=== PATIENT | female | born 1935 | race Caucasian/White ===

== ENCOUNTER 2016-08-30 14:54 | Observation (INO) | payer MEDICARE, BC ==
[2016-08-30] MEDS ORDERED: ASPIRIN 81 MG CHEW PO STA (15:40)
[2016-08-30] MEDS ORDERED: NITROGLYCERIN OINT 1 INCH/GM PACKET TOPICAL STA (15:40)
--- NOTE | 2016-08-30 15:47 | ED ---
General Adult HPI - General Chief complaint: Chest Pain Stated complaint: Chest Pain/Sob Source: patient, RN notes reviewed Mode of arrival: wheelchair Limitations: no limitations - History of Present Illness Initial comments: This is an 80-year-old female with past medical history significant for high blood pressure and high cholesterol. Patient also has a strong family history of cardiac disease. Patient started having chest pain in the middle of the night and she states it's a pressure sensation in the left chest that radiates to her back. Patient states she's also noted she is somewhat short of breath. Patient denies any diaphoresis patient denies any nausea. Patient denies any abdominal pain. Patient denies any recent fever chills or cough. Patient denies any lightheadedness or dizziness. Patient denies any headache patient denies numbness weakness. Patient denies any vomiting or diarrhea. Patient denies reproducible pain on palpation. Patient denies any calf pain or swelling. Patient denies any recent trips or travel. - Related Data Home Medications Medication Instructions Recorded Confirmed Albuterol Inhaler [Ventolin Hfa 2 puff INHALATION RT-DAILY PRN 03/14/15 08/30/16 Inhaler] Atenolol [Tenormin] 50 mg PO HS 03/14/15 08/30/16 Simvastatin [Zocor] 80 mg PO HS 03/14/15 08/30/16 clonazePAM [KlonoPIN] 0.5 mg PO DAILY PRN 03/14/15 08/30/16 Aspirin [Adult Low Dose Aspirin EC] 81 mg PO DAILY 08/30/16 08/30/16 Losartan/Hydrochlorothiazide 1 tab PO DAILY 08/30/16 08/30/16 [Losartan-Hctz 50-12.5 mg Tab] Multivitamins, Thera [Multivitamin 1 tab PO DAILY 08/30/16 08/30/16 (formulary)] Omeprazole [PriLOSEC] 20 mg PO DAILY 08/30/16 08/30/16 Allergies Allergy/AdvReac Type Severity Reaction Status Date / Time codeine Allergy Unknown Verified 08/30/16 19:26 Review of Systems ROS Statement: Those systems with pertinent positive or pertinent negative responses have been documented in the HPI. ROS Other: All systems not noted in ROS Statement are negative. Past Medical History Past Medical History: Coronary Artery Disease (CAD), Cancer, Chest Pain / Angina , Hypertension History of Any Multi-Drug Resistant Organisms: None Reported Past Surgical History: No Surgical Hx Reported Additional Past Surgical History / Comment(s): brain sx, nasal sx Past Psychological History: No Psychological Hx Reported Smoking Status: Former smoker Past Alcohol Use History: None Reported Past Drug Use History: None Reported General Exam - General Exam Comments Initial Comments: GENERAL: Patient is well-developed and well-nourished. Patient is nontoxic and well- hydrated and is in no acute distress. ENT: Neck is soft and supple. No significant lymphadenopathy is noted. Oropharynx is clear. Moist mucous membranes. Neck has full range of motion without eliciting any pain. EYES: The sclera were anicteric and conjunctiva were pink and moist. Extraocular movements were intact and pupils were equal round and reactive to light. Eyelids were unremarkable. PULMONARY: Unlabored respirations. Good breath sounds bilaterally. No audible rales rhonchi or wheezing was noted. CARDIOVASCULAR: There is a regular rate and rhythm without any murmurs gallops or rubs. ABDOMEN: Soft and nontender with normal bowel sounds. SKIN: Skin is clear with no lesions or rashes and otherwise unremarkable. NEUROLOGIC: Patient is alert and oriented x3. Cranial nerves II through XII are grossly intact. Motor and sensory are also intact. Normal speech, volume and content. Symmetrical smile. MUSCULOSKELETAL: Normal extremities with adequate strength and full range of motion. LYMPHATICS: No significant lymphadenopathy is noted PSYCHIATRIC: Normal psychiatric evaluation Limitations: no limitations Course Vital Signs 08/30/16 08/30/16 08/30/16 14:58 16:09 17:07 Temperature 97.2 F L 98.1 F Pulse Rate 61 63 57 L Respiratory 16 16 17 Rate Blood Pressure 139/62 140/63 159/79 O2 Sat by Pulse 95 98 94 L Oximetry Medical Decision Making - Medical Decision Making EKG shows normal sinus rhythm at 63 bpm DE interval is 180 Darius is 92 QT interval 406 QTC is 415. Patient's EKG shows no ST segment elevation or depression or T-wave abdomen is noted Chest x-ray shows no acute abnormality. I spoke with Dr. Michelle Diallo agreed to admit the patient admitted the patient started the patient on heparin and I consult to cardiology. I continue the heparin and aspirin and Nitropaste on the floor. - Lab Data Result diagrams: 08/30/16 16:05 08/30/16 16:05 Lab Results 08/30/16 08/30/16 08/30/16 Range/Units 16:05 16:05 16:05 WBC 7.4 (3.8-10.6) k/uL RBC 4.44 (3.80-5.40) m/uL Hgb 13.8 (11.4-16.0) gm/dL Hct 38.9 (34.0-46.0) % MCV 87.7 (80.0-100.0) fL MCH 31.1 (25.0-35.0) pg MCHC 35.5 (31.0-37.0) g/dL RDW 12.7 (11.5-15.5) % Plt Count 260 (150-450) k/uL Neutrophils % 60 % Lymphocytes % 23 % Monocytes % 9 % Eosinophils % 2 % Basophils % 1 % Neutrophils # 4.4 (1.3-7.7) k/uL Lymphocytes # 1.7 (1.0-4.8) k/uL Monocytes # 0.7 (0-1.0) k/uL Eosinophils # 0.2 (0-0.7) k/uL Basophils # 0.1 (0-0.2) k/uL PT (9.0-12.0) sec INR (<1.1) APTT (22.0-30.0) sec Sodium 141 (137-145) mmol/L Potassium 3.9 (3.5-5.1) mmol/L Chloride 104 (98-107) mmol/L Carbon Dioxide 27 (22-30) mmol/L Anion Gap 10 mmol/L BUN 32 H (7-17) mg/dL Creatinine 0.89 (0.52-1.04) mg/dL Est GFR (MDRD) Af Amer >60 (>60 ml/min/1.73 sqM) Est GFR (MDRD) Non-Af >60 (>60 ml/min/1.73 sqM) Glucose 126 H (74-99) mg/dL Calcium 9.7 (8.4-10.2) mg/dL Magnesium 1.6 (1.6-2.3) mg/dL Total Bilirubin 1.1 (0.2-1.3) mg/dL AST 24 (14-36) U/L ALT 33 (9-52) U/L Alkaline Phosphatase 63 (38-126) U/L Total Creatine Kinase 31 (30-135) U/L CK-MB (CK-2) 0.2 (0.0-2.4) ng/mL CK-MB (CK-2) Rel Index 0.6 Troponin I <0.012 (0.000-0.034) ng/mL NT-Pro-B Natriuret Pep pg/mL Total Protein 7.1 (6.3-8.2) g/dL Albumin 4.1 (3.5-5.0) g/dL 08/30/16 08/30/16 Range/Units 16:05 16:05 WBC (3.8-10.6) k/uL RBC (3.80-5.40) m/uL Hgb (11.4-16.0) gm/dL Hct (34.0-46.0) % MCV (80.0-100.0) fL MCH (25.0-35.0) pg MCHC (31.0-37.0) g/dL RDW (11.5-15.5) % Plt Count (150-450) k/uL Neutrophils % % Lymphocytes % % Monocytes % % Eosinophils % % Basophils % % Neutrophils # (1.3-7.7) k/uL Lymphocytes # (1.0-4.8) k/uL Monocytes # (0-1.0) k/uL Eosinophils # (0-0.7) k/uL Basophils # (0-0.2) k/uL PT 10.5 (9.0-12.0) sec INR 1.0 (<1.1) APTT 22.9 (22.0-30.0) sec Sodium (137-145) mmol/L Potassium (3.5-5.1) mmol/L Chloride (98-107) mmol/L Carbon Dioxide (22-30) mmol/L Anion Gap mmol/L BUN (7-17) mg/dL Creatinine (0.52-1.04) mg/dL Est GFR (MDRD) Af Amer (>60 ml/min/1.73 sqM) Est GFR (MDRD) Non-Af (>60 ml/min/1.73 sqM) Glucose (74-99) mg/dL Calcium (8.4-10.2) mg/dL Magnesium (1.6-2.3) mg/dL Total Bilirubin (0.2-1.3) mg/dL AST (14-36) U/L ALT (9-52) U/L Alkaline Phosphatase (38-126) U/L Total Creatine Kinase (30-135) U/L CK-MB (CK-2) (0.0-2.4) ng/mL CK-MB (CK-2) Rel Index Troponin I (0.000-0.034) ng/mL NT-Pro-B Natriuret Pep 156 pg/mL Total Protein (6.3-8.2) g/dL Albumin (3.5-5.0) g/dL Critical Care Time Critical Care Time: Yes Total Critical Care Time: 35 Disposition Clinical Impression: Unstable angina Disposition: ADMITTED IP TO THIS HOSP
[2016-08-30 16:21] LABS: Partial Thromboplastin Time 22.9 sec (22.0-30.0); Prothrombin Time 10.5 sec (9.0-12.0)
[2016-08-30 16:22] LABS: ALT 33 U/L (9-52); AST 24 U/L (14-36); Alkaline Phosphatase 63 U/L (38-126); Anion Gap 10 mmol/L; Blood Urea Nitrogen 32 mg/dL (7-17); Calcium 9.7 mg/dL (8.4-10.2); Carbon Dioxide 27 mmol/L (22-30); Chloride 104 mmol/L (98-107); Glucose 126 mg/dL (74-99); Magnesium 1.6 mg/dL (1.6-2.3); Non-African American GFR(MDRD) >60 (>60 ml/min/1.73 sqM); Potassium 3.9 mmol/L (3.5-5.1); Sodium 141 mmol/L (137-145); Total Bilirubin 1.1 mg/dL (0.2-1.3); Total Protein 7.1 g/dL (6.3-8.2)
[2016-08-30 16:34] LABS: Creatine Kinase 31 U/L (30-135)
[2016-08-30 16:37] LABS: Basophils # (A) 0.1 k/uL (0-0.2); Basophils % (A) 1 %; CH 30.1; CHCM 34.5; Eosinophils # (A) 0.2 k/uL (0-0.7); Eosinophils % (A) 2 %; HCT 38.9 % (34.0-46.0); HDW 2.46; HGB 13.8 gm/dL (11.4-16.0); Luc # (Auto) 0.32; Luc % (Auto) 4; Lymphocytes # (A) 1.7 k/uL (1.0-4.8); Lymphocytes % (A) 23 %; MCH 31.1 pg (25.0-35.0); MCHC 35.5 g/dL (31.0-37.0); MCV 87.7 fL (80.0-100.0); Mean Platelet Volume 6.9; Monocytes # (A) 0.7 k/uL (0-1.0); Monocytes % (A) 9 %; Neutrophils # (A) 4.4 k/uL (1.3-7.7); Neutrophils % (A) 60 %; RBC 4.44 m/uL (3.80-5.40); RDW 12.7 % (11.5-15.5); WBC 7.4 k/uL (3.8-10.6); WBC (Perox) 7.44
--- NOTE | 2016-08-30 16:42 | XR ---
EXAMINATION TYPE: XR chest 2V DATE OF EXAM: 08/30/2016 COMPARISON: 03/31/2015 INDICATION: Chest pain TECHNIQUE: Frontal and lateral views of the chest are obtained. FINDINGS: The heart size is normal. The pulmonary vasculature is normal. A right epicardial fat pad may be present. Some increased density appears to be within the right lowe r lobe medially IMPRESSION: 1. No acute pulmonary process.
[2016-08-30 16:45] LABS: Creatine Kinase MB 0.2 ng/mL (0.0-2.4); Troponin I <0.012 ng/mL (0.000-0.034)
[2016-08-30] MEDS ORDERED: HEPARIN SODIUM,PORCINE 5,000 UNIT/ML 1 ML VIAL IV ONE (16:47)
[2016-08-30] MEDS ORDERED: NITROGLYCERIN SL TABS 0.4 MG TAB SUBLINGUAL PRN (16:49)
[2016-08-30] MEDS: HEPARIN SODIUM,PORCINE/D5W PMX 25,000 UNIT in DEXTROSE/WATER 1 500ML.BAG IV SCH (16:58)
[2016-08-30] MEDS ORDERED: clonazePAM 0.5 MG TAB PO PRN (18:25)
[2016-08-30] MEDS ORDERED: ALBUTEROL NEBULIZED 2.5 MG/3 ML INHALATION PRN (18:25)
[2016-08-30] MEDS ORDERED: ACETAMINOPHEN TAB 325 MG TAB PO PRN (19:33)
[2016-08-30] MEDS: ATENOLOL 50 MG TAB PO SCH (20:14)
[2016-08-30] MEDS: ATORVASTATIN 40 MG TAB PO SCH (20:14)
[2016-08-30 22:55] LABS: Creatine Kinase 27 U/L (30-135)
[2016-08-30 23:08] LABS: Creatine Kinase MB <0.2 ng/mL (0.0-2.4); Troponin I <0.012 ng/mL (0.000-0.034)
[2016-08-31] MEDS: NITROGLYCERIN OINT 1 INCH/GM PACKET TOPICAL SCH ×5 (00:27→23:21)
[2016-08-31] MEDS: MELATONIN 5 MG TABLET PO PRN ×2 (00:55→23:25)
[2016-08-31 05:54] LABS: Creatine Kinase MB 0.2 ng/mL (0.0-2.4); Troponin I 0.014 ng/mL (0.000-0.034)
[2016-08-31 06:51] LABS: Cholesterol 201 mg/dL (<200); HDL Cholesterol 40 mg/dL (40-60); Triglycerides 85 mg/dL (<150)
[2016-08-31] MEDS: LOSARTAN-HCTZ 50-12.5 MG 1 EACH TAB PO SCH (08:08)
[2016-08-31] MEDS: PANTOPRAZOLE 40 MG TABLET PO SCH (08:08)
[2016-08-31] MEDS: ASPIRIN 325 MG TAB PO SCH (08:08)
[2016-08-31] MEDS ORDERED: REGADENOSON 0.4 MG/5 ML SYRINGE IV ONE ×2 (08:47→08:58)
[2016-08-31] MEDS ORDERED: AMINOPHYLLINE 500 MG/20 ML VIAL IV PRN (08:47)
--- NOTE | 2016-08-31 08:55 | P.CRDCN ---
History of Present Illness Consult date: 08/31/16 History of present illness: This is a 80-year-old female with history of high blood pressure and remote history of smoking and family history of ischemic heart disease came to the hospital with complaints of midsternal and lower sternal chest tightness as if the balloon is expanding. Apparently patient had a similar episode about 2 weeks ago and was seen in the primary care physician's office. EKG at the time was negative for ischemia. She was advised to go to the hospital. Her next time she had the pain. Last night patient had pain intermittently and finally she came to the emergency room. EKGs did not reveal any acute changes and cardiac enzymes are negative. Patient seemed to be free of pain at this time. Given her multiple risk factors and typical chest pains ,underlying ischemic heart disease cannot be excluded. He patient is advised to consider either cardiac catheterization or a nuclear stress test for definitive diagnosis. I indicated that a cardiac catheterization may be preferable way. Patient always hesitant wants to think about it. I'm going to tentatively scheduled for a nuclear stress test and echocardiogram tomorrow. If she decides to go for cardiac catheterizatio, We can change the plans. Further recommendation will depend upon the clinical course and findings on the tests Review of Systems REVIEW OF SYSTEMS: CONSTITUTIONAL:. Patient is doing well. No complaints of fever or chills EYES: Denies diplopia, blurring of vision EARS, NOSE, MOUTH, THROAT: Denies headaches, denies sore throat. CARDIOVASCULAR: As per chart RESPIRATORY: Denies shortness of breath, denies cough. GASTROINTESTINAL: Denies change in appetite, denies abdominal pain, denies diarrhea GENITOURINARY: Denies hematuria, denies infections. MUSKULOSKELETAL: Denies pain, denies swelling. Denies any cramps or claudication INTEGUMENTARY: Denies rash, denies eczema. NEUROLOGICAL: Denies focal weakness, or visual disturbance. Denies any dizziness or syncope PSYCHIATRIC: Denies anxiety, denies depression. HEMATOLOGIC/LYMPHATIC: Denies any bleeding, denies enlarged lymph nodes. Past Medical History Past Medical History: Coronary Artery Disease (CAD), Cancer, Chest Pain / Angina , Hypertension History of Any Multi-Drug Resistant Organisms: None Reported Past Surgical History: No Surgical Hx Reported Additional Past Surgical History / Comment(s): brain sx, nasal sx Smoking Status: Former smoker Medications and Allergies Home Medications Medication Instructions Recorded Confirmed Type Albuterol Inhaler [Ventolin Hfa 2 puff INHALATION RT-DAILY PRN 03/14/15 History Inhaler] Atenolol [Tenormin] 50 mg PO HS 03/14/15 08/30/16 History Simvastatin [Zocor] 80 mg PO HS 03/14/15 08/30/16 History clonazePAM [KlonoPIN] 0.5 mg PO DAILY PRN 03/14/15 08/30/16 History Aspirin [Adult Low Dose Aspirin EC] 81 mg PO DAILY 08/30/16 08/30/16 History Losartan/Hydrochlorothiazide 1 tab PO DAILY 08/30/16 08/30/16 History [Losartan-Hctz 50-12.5 mg Tab] Multivitamins, Thera [Multivitamin 1 tab PO DAILY 08/30/16 08/30/16 History (formulary)] Omeprazole [PriLOSEC] 20 mg PO DAILY 08/30/16 08/30/16 History Allergies Allergy/AdvReac Type Severity Reaction Status Date / Time codeine Allergy Unknown Verified 08/30/16 19:26 Physical Exam Vitals: Vital Signs Temp Pulse Pulse Resp BP BP Pulse Ox 08/31/16 07:37 98.1 F 55 L 16 134/60 94 L 08/31/16 04:00 16 08/31/16 03:54 97.8 F 56 L 16 125/61 94 L 08/31/16 00:00 16 08/30/16 23:05 98.0 F 58 L 16 103/51 93 L 08/30/16 20:00 16 08/30/16 18:56 98.7 F 62 16 148/70 95 08/30/16 17:07 98.1 F 57 L 17 159/79 94 L 08/30/16 16:09 63 16 140/63 98 08/30/16 14:58 97.2 F L 61 16 139/62 95 Intake and Output 08/30/16 08/31/16 08/31/16 22:59 06:59 14:59 Intake Total 236 Balance 236 Intake: Oral 236 Other: Voiding Method Toilet Toilet Toilet # Voids 1 1 GENERAL EXAM: Patient is alert and oriented and doesn't appear to be in any acute distress HEENT: Normocephalic. Normal reaction of pupils, equal size, normal range of extraocular motion. No erythema or exudates in the throat. NECK: No masses, no nuchal rigidity. CHEST: No chest wall deformity. LUNGS: Equal air entry with no crackles or wheeze. HEART: S1 and S2 normal with no audible mumurs or gallops. Regular rhythm, femorals equal on both sides.. ABDOMEN: No hepatosplenomegaly, normal bowel sounds, no guarding or rigidity. SKIN: No rashes CENTRAL NERVOUS SYSTEM: No focal deficits. EXTREMITIES: No cyanosis, clubbing or edema. Results 08/30/16 16:05 08/30/16 16:05 Cardiac Enzymes 08/30/16 08/30/16 08/30/16 Range/Units 16:05 16:05 21:59 AST 24 (14-36) U/L CK-MB (CK-2) 0.2 <0.2 (0.0-2.4) ng/mL Troponin I <0.012 <0.012 (0.000-0.034) ng/mL 08/31/16 Range/Units 04:41 AST (14-36) U/L CK-MB (CK-2) 0.2 (0.0-2.4) ng/mL Troponin I 0.014 (0.000-0.034) ng/mL Coagulation 08/30/16 08/30/16 08/30/16 Range/Units 16:05 21:59 23:58 PT 10.5 (9.0-12.0) sec APTT 22.9 73.6 H 65.7 H (22.0-30.0) sec 08/31/16 Range/Units 04:41 PT (9.0-12.0) sec APTT 64.7 H (22.0-30.0) sec Lipids 08/31/16 Range/Units 04:41 Triglycerides 85 (<150) mg/dL Cholesterol 201 H (<200) mg/dL HDL Cholesterol 40 (40-60) mg/dL CBC 08/30/16 Range/Units 16:05 WBC 7.4 (3.8-10.6) k/uL RBC 4.44 (3.80-5.40) m/uL Hgb 13.8 (11.4-16.0) gm/dL Hct 38.9 (34.0-46.0) % Plt Count 260 (150-450) k/uL Comprehensive Metabolic Panel 08/30/16 Range/Units 16:05 Sodium 141 (137-145) mmol/L Potassium 3.9 (3.5-5.1) mmol/L Chloride 104 (98-107) mmol/L Carbon Dioxide 27 (22-30) mmol/L BUN 32 H (7-17) mg/dL Creatinine 0.89 (0.52-1.04) mg/dL Glucose 126 H (74-99) mg/dL Calcium 9.7 (8.4-10.2) mg/dL AST 24 (14-36) U/L ALT 33 (9-52) U/L Alkaline Phosphatase 63 (38-126) U/L Total Protein 7.1 (6.3-8.2) g/dL Albumin 4.1 (3.5-5.0) g/dL Current Medications Generic Name Dose Route Start Last Admin Trade Name Freq PRN Reason Stop Dose Admin Acetaminophen 650 mg 08/30/16 19:33 08/30/16 20:14 Tylenol Tab PO 650 mg Q4HR PRN Administration Fever and/ or MILD Pain Albuterol Sulfate 2.5 mg 08/30/16 18:25 Ventolin Nebulized INHALATION RT-DAILY PRN Shortness Of Breath Aminophylline 100 mg 08/31/16 08:47 Aminophylline IV ONCE PRN Patient Response Aspirin 325 mg 08/31/16 09:00 08/31/16 08:08 Aspirin PO 325 mg DAILY NEYDA Administration Atenolol 50 mg 08/30/16 21:00 08/30/16 20:14 Tenormin PO 50 mg HS NEYDA Administration Atorvastatin Calcium 40 mg 08/30/16 21:00 08/30/16 20:14 Lipitor PO 40 mg HS NEYDA Administration Clonazepam 0.5 mg 08/30/16 18:25 Klonopin PO DAILY PRN Anxiety HCTZ/Losartan Potassium 1 each 08/31/16 09:00 08/31/16 08:08 Hyzaar 50-12.5 PO 1 each DAILY NEYDA Administration Heparin Sodium/Dextrose 25,000 500 mls @ 14.69 mls/hr 08/30/16 17:00 16:58 unit/ IV Solution IV 12 units/kg/hr .Q24H NEYDA 14.69 mls/hr Protocol Administration 12 UNITS/KG/HR Melatonin 5 mg 08/31/16 00:32 08/31/16 00:55 Melatonin PO 5 mg HS PRN Administration Insomnia Multivitamins 1 each 08/31/16 12:00 Theragran PO 1200 NEYDA Nitroglycerin 1 inch 08/31/16 00:00 08/31/16 06:12 Nitro-Bid Oint TOPICAL 1 inch Q6HR NEYDA Administration Nitroglycerin 0.4 mg 08/30/16 16:49 Nitrostat SUBLINGUAL Q5M PRN Chest Pain Pantoprazole Sodium 40 mg 08/31/16 09:00 08/31/16 08:08 Protonix PO 40 mg DAILY NEYDA Administration Regadenoson 0.4 mg 08/31/16 08:47 Lexiscan IV 08/31/16 08:48 ONCE ONE Intake and Output 08/30/16 08/31/16 08/31/16 22:59 06:59 14:59 Intake Total 236 Balance 236 Intake: Oral 236 Other: Voiding Method Toilet Toilet Toilet # Voids 1 1 08/30/16 16:05 08/30/16 16:05 EKG Interpretations (text) Sinus rhythm Assessment and Plan (1) Chest pain Status: Acute (2) Unstable angina Status: Acute (3) Hypertension Status: Acute (4) History of smoking Status: Acute Plan: Patient is relatively stable at this time. Underlying ischemic heart disease cannot be excluded. Patient is advised to consider either cardiac catheterization or nuclear stress test though cardiac catheterization may be preferable. Patient is agent at this time, about cardiac catheterization. Patient will have nuclear stress test tomorrow along with echocardiogram. Further recommendation will depend upon the findings on the tests.
[2016-08-31] MEDS ORDERED: NON-FORMULARY DRUG (Aspirin [Adult Low Dose Aspirin Ec] 81 MG) PO SCH (09:00)
[2016-08-31] MEDS ORDERED: ATENOLOL 50 MG TAB PO SCH (09:00)
[2016-08-31] MEDS ORDERED: ALPRAZolam 0.25 MG TAB PO STA (09:06)
[2016-08-31] MEDS ORDERED: ATORVASTATIN 40 MG TAB PO STA (09:29)
[2016-08-31] MEDS ORDERED: NITROGLYCERIN SL TABS 0.4 MG TAB SUBLINGUAL PRN (09:29)
[2016-08-31] MEDS ORDERED: SODIUM CHLORIDE 0.9% 1,000 ML in EMPTY BAG 1 BAG IV ONE (09:29)
[2016-08-31] MEDS ORDERED: ALPRAZolam 0.25 MG TAB PO PRN (09:29)
[2016-08-31] MEDS ORDERED: ALPRAZolam 0.5 MG TAB PO PRN (09:29)
[2016-08-31] MEDS ORDERED: ASPIRIN 325 MG TAB PO STA (09:29)
[2016-08-31] MEDS: MULTIVITAMINS, THERA 1 EACH TAB PO SCH (12:35)
--- NOTE | 2016-08-31 14:51 | P.HPIM ---
History of Present Illness This is a 80-year-old female with history of high blood pressure and remote history of smoking and family history of ischemic heart disease came to the hospital with complaints of midsternal and lower sternal chest tightness as if the balloon is expanding. Apparently patient had a similar episode about 2 weeks ago and was seen in the primary care physician's office. EKG at the time was negative for ischemia. She was advised to go to the hospital. Her next time she had the pain. Last night patient had pain intermittently and finally she came to the emergency room. EKGs did not reveal any acute changes and cardiac enzymes are negative. Patient seemed to be free of pain at this time. Patient's chest pain is non-pruritic in nature, not associated with food lasted for 3 hours, about 5-6 x 10 in severity and he didn't do the back, patient does have back pain. Patient denied any diaphoresis, nausea, lightheadedness. Sublingual nitroglycerin didn't seem to help. Review of Systems REVIEW OF SYSTEMS: CONSTITUTIONAL: No fever, no malaise, no fatigue. HEENT: No recent visual problems or hearing problems. Denied any sore throat. CARDIOVASCULAR: No orthopnea, PND, no palpitations, no syncope. PULMONARY: No shortness of breath, no cough, no hemoptysis. GASTROINTESTINAL: No diarrhea, no nausea, no vomiting, no abdominal pain. Normoactive bowel sounds. NEUROLOGICAL: No headaches, no weakness, no numbness. HEMATOLOGICAL: Denies any bleeding or petechiae. GENITOURINARY: Denies any burning micturition, frequency, or urgency. MUSCULOSKELETAL/RHEUMATOLOGICAL: Denies any joint pain, swelling, or any muscle pain. ENDOCRINE: Denies any polyuria or polydipsia. The rest of the 14-point review of systems is negative. Past Medical History Past Medical History: Coronary Artery Disease (CAD), Cancer, Chest Pain / Angina , Hypertension History of Any Multi-Drug Resistant Organisms: None Reported Past Surgical History: No Surgical Hx Reported Additional Past Surgical History / Comment(s): brain sx, nasal sx Smoking Status: Former smoker Medications and Allergies Home Medications Medication Instructions Recorded Confirmed Type Albuterol Inhaler [Ventolin Hfa 2 puff INHALATION RT-DAILY PRN 03/14/15 History Inhaler] Atenolol [Tenormin] 50 mg PO HS 03/14/15 08/30/16 History Simvastatin [Zocor] 80 mg PO HS 03/14/15 08/30/16 History clonazePAM [KlonoPIN] 0.5 mg PO DAILY PRN 03/14/15 08/30/16 History Aspirin [Adult Low Dose Aspirin EC] 81 mg PO DAILY 08/30/16 08/30/16 History Losartan/Hydrochlorothiazide 1 tab PO DAILY 08/30/16 08/30/16 History [Losartan-Hctz 50-12.5 mg Tab] Multivitamins, Thera [Multivitamin 1 tab PO DAILY 08/30/16 08/30/16 History (formulary)] Omeprazole [PriLOSEC] 20 mg PO DAILY 08/30/16 08/30/16 History Allergies Allergy/AdvReac Type Severity Reaction Status Date / Time codeine Allergy Unknown Verified 08/30/16 19:26 Physical Exam Vitals: Vital Signs Temp Pulse Pulse Resp BP BP Pulse Ox 08/31/16 11:34 98 F 60 16 145/63 95 08/31/16 07:37 98.1 F 55 L 16 134/60 94 L 08/31/16 04:00 16 08/31/16 03:54 97.8 F 56 L 16 125/61 94 L 08/31/16 00:00 16 08/30/16 23:05 98.0 F 58 L 16 103/51 93 L 08/30/16 20:00 16 08/30/16 18:56 98.7 F 62 16 148/70 95 08/30/16 17:07 98.1 F 57 L 17 159/79 94 L 08/30/16 16:09 63 16 140/63 98 08/30/16 14:58 97.2 F L 61 16 139/62 95 Intake and Output 08/30/16 08/31/16 08/31/16 22:59 06:59 14:59 Intake Total 236 Balance 236 Intake: Oral 236 Other: Voiding Method Toilet Toilet Toilet # Voids 1 1 1 PHYSICAL EXAMINATION: GENERAL: The patient is alert and oriented x3, not in any acute distress. Well developed, well nourished. HEENT: Pupils are round and equally reacting to light. EOMI. No scleral icterus. No conjunctival pallor. Normocephalic, atraumatic. No pharyngeal erythema. No thyromegaly. CARDIOVASCULAR: S1 and S2 present. No murmurs, rubs, or gallops. PULMONARY: Chest is clear to auscultation, no wheezing or crackles. ABDOMEN: Soft, nontender, nondistended, normoactive bowel sounds. No palpable organomegaly. MUSCULOSKELETAL: No joint swelling or deformity. EXTREMITIES: No cyanosis, clubbing, or pedal edema. NEUROLOGICAL: Gross neurological examination did not reveal any focal deficits. SKIN: No rashes. Results CBC & Chem 7: 08/30/16 16:05 08/30/16 16:05 Labs: Abnormal Lab Results - Last 24 Hours (Table) 08/30/16 08/30/16 08/30/16 Range/Units 16:05 21:59 21:59 APTT 73.6 H (22.0-30.0) sec BUN 32 H (7-17) mg/dL Glucose 126 H (74-99) mg/dL Total Creatine Kinase 27 L (30-135) U/L Cholesterol (<200) mg/dL LDL Cholesterol, Calc (0-99) mg/dL 08/30/16 08/31/16 08/31/16 Range/Units 23:58 04:41 04:41 APTT 65.7 H (22.0-30.0) sec BUN (7-17) mg/dL Glucose (74-99) mg/dL Total Creatine Kinase 25 L (30-135) U/L Cholesterol 201 H (<200) mg/dL LDL Cholesterol, Calc 144 H (0-99) mg/dL 08/31/16 Range/Units 04:41 APTT 64.7 H (22.0-30.0) sec BUN (7-17) mg/dL Glucose (74-99) mg/dL Total Creatine Kinase (30-135) U/L Cholesterol (<200) mg/dL LDL Cholesterol, Calc (0-99) mg/dL Thrombosis Risk Factor Assmnt - Choose All That Apply Each Risk Factor Represents 3 Points: Age 75 years or older Thrombosis Risk Factor Assessment Total Risk Factor Score: 3 Thrombosis Risk Factor Assessment Level: Moderate Risk Assessment and Plan Plan: #1 chest pain: Rule out a concurrent syndromes, stable angina, cardiology is recommending cardiac catheterization. Patient will undergo cardiac catheterization tomorrow patient mostly has [place] skeletal pain probably coming from the back. #2 hypertension #3 history of smoking.
[2016-08-31] MEDS: ATORVASTATIN 40 MG TAB PO SCH (19:28)
[2016-08-31] MEDS: ATENOLOL 50 MG TAB PO SCH (19:28)
[2016-08-31] MEDS: HEPARIN SODIUM,PORCINE/D5W PMX 25,000 UNIT in DEXTROSE/WATER 1 500ML.BAG IV SCH (23:24)
[2016-09-01] MEDS: NITROGLYCERIN OINT 1 INCH/GM PACKET TOPICAL SCH ×2 (04:28→10:45)
[2016-09-01] MEDS: PANTOPRAZOLE 40 MG TABLET PO SCH (06:03)
[2016-09-01] MEDS: LOSARTAN-HCTZ 50-12.5 MG 1 EACH TAB PO SCH (06:03)
[2016-09-01] MEDS: ASPIRIN 325 MG TAB PO SCH (06:03)
[2016-09-01] MEDS ORDERED: AMINOPHYLLINE 500 MG/20 ML VIAL IV PRN ×2 (07:00)
[2016-09-01 07:15] VITALS: RESP 16
[2016-09-01] MEDS ORDERED: IV FLUID CONTINUATION 1,000 ML IV ONE (08:17)
[2016-09-01] MEDS ORDERED: LIDOCAINE 2% INJ 20 MG/ML SQ ONE (08:32)
[2016-09-01] MEDS ORDERED: diphenhydrAMINE 50 MG/ML 1 ML VIAL IVP ONE (08:32)
[2016-09-01] MEDS ORDERED: fentaNYL (PF) 50 MCG/ML 2 ML AMP IVP ONE (08:33)
[2016-09-01] MEDS ORDERED: MIDAZOLAM 2 MG/2 ML VIAL IVP ONE (08:33)
[2016-09-01] MEDS ORDERED: IOHEXOL 350 MG/ML 100 ML BOTTLE INJ ONE (08:45)
[2016-09-01] MEDS ORDERED: RX INFO: IV CONTRAST WAS GIVEN 1 EACH MISC MISCELLANE PRN (09:02)
[2016-09-01] MEDS ORDERED: SODIUM CHLORIDE 0.9% 1,000 ML IV SCH (09:15)
--- NOTE | 2016-09-01 11:32 | ECHOF ---
Referral Reason:Chest pain and cardiomyopathy MEASUREMENTS -------- HEIGHT: 160.0 cm WEIGHT: 61.2 kg BP: 157/68 RVIDd: 3.2 cm (< 3.3) IVSd: 1.1 cm (0.6 - 1.1) LVIDd: 4.4 cm (3.9 - 5.3) LVPWd: 1.0 cm (0.6 - 1.1) IVSs: 1.3 cm LVIDs: 2.9 cm LVPWs: 1.6 cm LA Diam: 3.1 cm (2.7 - 3.8) LAESV Index (A-L): 29.29 ml/m Ao Diam: 3.5 cm (2.0 - 3.7) AV Cusp: 2.1 cm (1.5 - 2.6) MV EXCURSION: 13.362 mm (> 18.000) MV EF SLOPE: 50 mm/s (70 - 150) EPSS: 0.6 cm MV E Bertram: 0.70 m/s MV DecT: 382 ms MV A Bertram: 0.91 m/s MV E/A Ratio: 0.77 AR PHT: 656 ms RAP: 5.00 mmHg RVSP: 35.68 mmHg FINDINGS -------- Sinus rhythm. This was a technically good study. The left ventricular size is normal. There is borderline concentric left ventricular hypertrophy. Overall left ventricular systolic function is normal with, an EF between 60 - 65 %. The right ventricle is normal in size. LA is midly dilated 29-33ml/m2. The right atrium is normal in size. Aortic valve is trileaflet and is mildly thickened. There is [id number] aortic regurgitation. Mild mitral annular calcification present. Mild mitral regurgitation is present. Mild tricuspid regurgitation present. There is mild pulmonary hypertension. The right ventricular systolic pressure, as measured by Doppler, is 35.68mmHg. Trace/mild (physiologic) pulmonic regurgitation. The aortic root size is normal. Normal inferior vena cava with normal inspiratory collapse consistent with estimated right atrial pressure of 5 mmHg. The pericardium is normal. CONCLUSIONS -------- 1. Sinus rhythm. 2. There is [id number] aortic regurgitation. 3. Mild mitral annular calcification present. 4. Mild mitral regurgitation is present. 5. Mild tricuspid regurgitation present. 6. There is mild pulmonary hypertension. 7. The right ventricular systolic pressure, as measured by Doppler, is 35.68mmHg. 8. Trace/mild (physiologic) pulmonic regurgitation. 9. The aortic root size is normal. 10. Normal inferior vena cava with normal inspiratory collapse consistent with estimated right atrial pressure of 5 mmHg. 11. The pericardium is normal. 12. This was a technically good study. 13. The left ventricular size is normal. 14. There is borderline concentric left ventricular hypertrophy. 15. Overall left ventricular systolic function is normal with, an EF between 60 - 65 %. 16. The right ventricle is normal in size. 17. LA is midly dilated 29-33ml/m2. 18. The right atrium is normal in size. 19. Aortic valve is trileaflet and is mildly thickened. SENIOR BOOKKEEPER: Usha Ortiz RDCS
[2016-09-01 11:40] VITALS: TEMP 97.7
[2016-09-01] MEDS: MULTIVITAMINS, THERA 1 EACH TAB PO SCH (11:49)
[2016-09-01 13:02] VITALS: BP 110/53; PULSE 56
--- NOTE | 2016-09-02 15:16 | P.DS ---
Providers Date of admission: 08/30/16 16:49 Attending physician: Lee Stephenson Consults: 08/30/16 16:49 Consult Physician Urgent Consulting Provider: [facility] Consult Reason/Comments: Unstable angina Do you want consulting provider notified?: Yes Primary care physician: Lee Stephenson Pertinent Studies: Patient developed chest pain which is probably muscular skeletal in nature and patient underwent coronary catheterization which did not show any occlusive atherosclerotic vascular disease. Patient was discharged today. #1 chest pain: Rule out a concurrent syndromes, stable angina, cardiology is recommending cardiac catheterization. Patient will undergo cardiac catheterization tomorrow patient mostly has [place] skeletal pain probably coming from the back. #2 hypertension #3 history of smoking. Patient Condition at Discharge: Good Plan - Discharge Summary New Discharge Prescriptions: Continue clonazePAM [KlonoPIN] 0.5 mg PO DAILY PRN PRN Reason: Anxiety Simvastatin [Zocor] 80 mg PO HS Atenolol [Tenormin] 50 mg PO HS Albuterol Inhaler [Ventolin Hfa Inhaler] 2 puff INHALATION RT-DAILY PRN PRN Reason: Shortness Of Breath Omeprazole [PriLOSEC] 20 mg PO DAILY Multivitamins, Thera [Multivitamin (formulary)] 1 tab PO DAILY Losartan/Hydrochlorothiazide [Losartan-Hctz 50-12.5 mg Tab] 1 tab PO DAILY Aspirin [Adult Low Dose Aspirin EC] 81 mg PO DAILY Discharge Medication List Albuterol Inhaler [Ventolin Hfa Inhaler] 2 puff INHALATION RT-DAILY PRN [History] Atenolol [Tenormin] 50 mg PO HS 03/14/15 [History] Simvastatin [Zocor] 80 mg PO HS 03/14/15 [History] clonazePAM [KlonoPIN] 0.5 mg PO DAILY PRN 03/14/15 [History] Aspirin [Adult Low Dose Aspirin EC] 81 mg PO DAILY 08/30/16 [History] Losartan/Hydrochlorothiazide [Losartan-Hctz 50-12.5 mg Tab] 1 tab PO DAILY 08/30 [History] Multivitamins, Thera [Multivitamin (formulary)] 1 tab PO DAILY 08/30/16 [History ] Omeprazole [PriLOSEC] 20 mg PO DAILY 08/30/16 [History] Follow up Appointment(s)/Referral(s): Lee Stephenson MD [Primary Care Provider] - 1-2 days (please call and make appointment,office is closed) Patient Instructions/Handouts: *[facility] - After Heart Catheterization - Technical Consultant Instructions, Heart Catheterization (DC) Discharge Disposition: HOME SELF-CARE
--- NOTE | 2016-09-05 13:27 | P.PCN ---
Date of Procedure: 09/01/16 Preoperative Diagnosis: Unstable angina Postoperative Diagnosis: Normal coronary arteries Procedure(s) Performed: Left heart catheterization with left ventriculography Implants: Indications for Procedure: Operative Findings: Description of Procedure: HISTORY: This is a 80-year-old female with multiple risk factors, who was admitted to the hospital with complaints of recurrent chest pain suggestive of unstable angina. She is advised to have a cardiac catheterization for definitive diagnosis. CONSENT:I have discussed the risks, benefits and alternative therapies for the above-mentioned procedure and for both sedation/analgesia as well as necessary blood product administration, if indicated, as they pertain to this patient. The patient has indicated understanding and acceptance of the risks and procedures discussed. CONSCIOUS SEDATION: Patient is given IV Versed and fentanyl for sedation. The duration of the sedation was 25 minutes. PROCEDURE: Patient was brought to the lab in a fasting state. Patient was given some IV sedation. The right groin is infiltrated with lidocaine and right femoral artery was entered using Seldinger technique. A 6-Turkmen catheter was left in place and selective coronary arteriography and left ventriculography was performed. Patient tolerated the procedure well. Femoral angiogram was performed and Angio-Seal was applied for hemostasis. No immediate complications were noted and patient was transferred to [facility] in a stable condition HEMODYNAMICS: Aortic pressure is 130/70. Left ankle end-diastolic pressure was 15. There was no gradient across the aortic valve. SELECTIVE CORONARY ARTERIOGRAPHY: LEFT MAIN: the left main coronary artery is of normal length and patent THE LEFT ANTERIOR DESCENDING CORONARY ARTERY: It is a moderate caliber vessel with mild calcification and ectatic changes without any significant obstructive disease. THE LEFT CIRCUMFLEX AND IS CORONARY ARTERY: This is a red caliber vessel giving rise to good-sized OM branch. The circumflex and its branches are free of any occlusive disease. THE RIGHT CORONARY ARTERY: This is a good caliber vessel and dominant giving rise good-sized PDA. The right coronary artery and its branches are free of any significant occlusive disease. LEFT VENTRICULOGRAPHY: This showed a normal-sized cardiac silhouette with good preserved LV function. FINAL IMPRESSION: Minimal coronary artery disease with calcification and ectasia of the left coronary system. Preserved LV function PLAN: maximum medical therapy and risk factor modification PROGNOSIS: good
== END 2016-09-01 15:20 | disposition home or self-care (01) ==
LOC: EC 14:54 → 3OBS 16:49
PROVIDERS: ADMIT Family Medicine; ATTEND Family Medicine
DX: I25.110 Atherosclerotic heart disease of native coronary artery with unstable angina pectoris (principal); E78.00 Pure hypercholesterolemia, unspecified; I10 Essential (primary) hypertension; Z87.891 Personal history of nicotine dependence; Z82.49 Family history of ischemic heart disease and other diseases of the circulatory system; Z79.899 Other long term (current) drug therapy; Z79.82 Long term (current) use of aspirin; Z88.5 Allergy status to narcotic agent
CPT/HCPCS: 99152; 96376 ×2; 96365 ×2; 99291 ×2; 93005 ×2; 96366 ×2; 36415; 93306; 93458; 83880; 80061; 80053; 82550 ×2; 82553 ×2; 83735; 84484 ×2; 85025; 85610; 85730 ×3; 71020; G0378 ×3; C1760; C1894; C1769; J2001; J2250; J1200; J1644 ×3; Q9967; J3010

== ENCOUNTER 2017-06-09 07:58 | Emergency (ER) | payer MEDICARE, BC ==
[2017-06-09] MEDS ORDERED: SODIUM CHLORIDE 0.9% 1,000 ML IV STA ×2 (08:31)
[2017-06-09] MEDS ORDERED: PANTOPRAZOLE 40 MG/10 ML VIAL IVP STA (08:32)
[2017-06-09 08:54] LABS: Basophils % (A) 0 %; Eosinophils # (A) 0.2 k/uL (0-0.7); Eosinophils % (A) 2 %; HGB 13.6 gm/dL (11.4-16.0); Lymphocytes # (A) 1.2 k/uL (1.0-4.8); Lymphocytes % (A) 13 %; MCH 29.1 pg (25.0-35.0); MCHC 33.3 g/dL (31.0-37.0); MCV 87.3 fL (80.0-100.0); Mean Platelet Volume 7.8; Monocytes # (A) 0.4 k/uL (0-1.0); Monocytes % (A) 4 %; Neutrophils # (A) 7.1 k/uL (1.3-7.7); Neutrophils % (A) 80 %; Platelet Count 272 k/uL (150-450); RBC 4.69 m/uL (3.80-5.40); RDW 12.7 % (11.5-15.5); WBC 8.9 k/uL (3.8-10.6)
--- NOTE | 2017-06-09 08:57 | ED ---
Nausea/Vomiting/Diarrhea HPI - General Chief complaint: Nausea/Vomiting/Diarrhea Stated complaint: NVD Time Seen by Provider: 06/09/17 08:02 Source: patient, RN notes reviewed, old records reviewed Mode of arrival: EMS Limitations: no limitations - History of Present Illness Initial comments: This is an 81-year-old female chief complaint of dizziness for the past few weeks. She went to her primary care doctor's yesterday for evaluation for this. They had no significant diagnosis for it. Patient reports that yesterday she went to bed and had a few episodes of diarrhea and vomiting. She states that she had a proximally 4 episodes of severe diarrhea. She states afterwards she still felt dizzy and lightheaded. She reports that when she went to return to bed she seemed to slip out of the bed. She denies any head injury or any pain related to this minor fall. Patient relates that she has no chest pain or shortness of breath. She said she denies any abdominal pain but reports she still feels nauseated due to her vomiting. Patient relates that she 's had no fevers or chills. The diarrhea and vomiting just started yesterday evening.. - Related Data Home Medications Medication Instructions Recorded Confirmed Albuterol Inhaler [Ventolin Hfa 2 puff INHALATION RT-DAILY PRN 03/14/15 06/09/17 Inhaler] Atenolol [Tenormin] 25 mg PO HS 03/14/15 06/09/17 Simvastatin [Zocor] 80 mg PO HS 03/14/15 06/09/17 clonazePAM [KlonoPIN] 0.5 mg PO DAILY@1400 PRN 03/14/15 06/09/17 Aspirin [Adult Low Dose Aspirin EC] 81 mg PO DAILY 08/30/16 06/09/17 Losartan/Hydrochlorothiazide 1 tab PO DAILY 08/30/16 06/09/17 [Losartan-Hctz 50-12.5 mg Tab] Multivitamins, Thera [Multivitamin 1 tab PO DAILY 08/30/16 06/09/17 (formulary)] Omeprazole [PriLOSEC] 20 mg PO DAILY 08/30/16 06/09/17 Escitalopram [Lexapro] 5 mg PO DAILY 06/09/17 06/09/17 clonazePAM [KlonoPIN] 0.25 mg PO BID@0800,2100 06/09/17 06/09/17 Previous Rx's Medication Instructions Recorded Ondansetron Odt [Zofran Odt] 4 mg PO Q8HR PRN #12 tab 06/09/17 Allergies Allergy/AdvReac Type Severity Reaction Status Date / Time codeine Allergy Unknown Verified 06/09/17 09:14 Review of Systems ROS Statement: Those systems with pertinent positive or pertinent negative responses have been documented in the HPI. ROS Other: All systems not noted in ROS Statement are negative. Past Medical History Past Medical History: Coronary Artery Disease (CAD), Cancer, Chest Pain / Angina , Hypertension History of Any Multi-Drug Resistant Organisms: None Reported Past Surgical History: No Surgical Hx Reported Additional Past Surgical History / Comment(s): brain sx, nasal sx Past Psychological History: Anxiety Smoking Status: Former smoker Past Alcohol Use History: None Reported Past Drug Use History: None Reported General Exam Limitations: no limitations Course Vital Signs 06/09/17 06/09/17 08:05 10:02 Temperature 98.9 F Pulse Rate 67 75 Respiratory 16 18 Rate Blood Pressure 162/70 134/62 O2 Sat by Pulse 93 L 96 Oximetry - Reevaluation(s) Reevaluation #1: 06/09/17 11:56 Patient reports he feels better. Patient states she would like to be discharged home at this time. Medical Decision Making - Medical Decision Making 81-year-old female presents with nausea vomiting diarrhea for approximately one day. Given 2 L of IV fluids labwork obtained. All lab work was reviewed and normal. Distal abdominal tenderness. She feels better after receiving Zofran. No vomiting or diarrhea while in the emergency department. She states she would like to go home. Discussed the case infection treated to slightly dehydrated. Discussed clear liquid diet. We'll discharge the patient Zofran. All questions answered and return parameters were discussed. - Lab Data Result diagrams: 06/09/17 08:00 06/09/17 08:00 Lab Results 06/09/17 06/09/17 06/09/17 Range/Units 08:00 08:00 08:00 WBC 8.9 (3.8-10.6) k/uL RBC 4.69 (3.80-5.40) m/uL Hgb 13.6 (11.4-16.0) gm/dL Hct 41.0 (34.0-46.0) % MCV 87.3 (80.0-100.0) fL MCH 29.1 (25.0-35.0) pg MCHC 33.3 (31.0-37.0) g/dL RDW 12.7 (11.5-15.5) % Plt Count 272 (150-450) k/uL Neutrophils % 80 % Lymphocytes % 13 % Monocytes % 4 % Eosinophils % 2 % Basophils % 0 % Neutrophils # 7.1 (1.3-7.7) k/uL Lymphocytes # 1.2 (1.0-4.8) k/uL Monocytes # 0.4 (0-1.0) k/uL Eosinophils # 0.2 (0-0.7) k/uL Basophils # 0.0 (0-0.2) k/uL PT (9.0-12.0) sec INR (<1.2) APTT (22.0-30.0) sec Sodium 143 (137-145) mmol/L Potassium 4.4 (3.5-5.1) mmol/L Chloride 107 (98-107) mmol/L Carbon Dioxide 22 (22-30) mmol/L Anion Gap 14 mmol/L BUN 30 H (7-17) mg/dL Creatinine 0.77 (0.52-1.04) mg/dL Est GFR (CKD-EPI)AfAm 83 (>60 ml/min/1.73 sqM) Est GFR (CKD-EPI)NonAf 72 (>60 ml/min/1.73 sqM) Glucose 121 H (74-99) mg/dL Plasma Lactic Acid Sudhakar 1.5 (0.7-2.0) mmol/L Calcium 9.2 (8.4-10.2) mg/dL Magnesium 1.5 L (1.6-2.3) mg/dL Total Bilirubin 1.2 (0.2-1.3) mg/dL AST 32 (14-36) U/L ALT 28 (9-52) U/L Alkaline Phosphatase 60 (38-126) U/L Troponin I (0.000-0.034) ng/mL NT-Pro-B Natriuret Pep pg/mL Total Protein 6.7 (6.3-8.2) g/dL Albumin 3.8 (3.5-5.0) g/dL Amylase 113 H (30-110) U/L Lipase 319 H (23-300) U/L Urine Color Urine Appearance (Clear) Urine pH (5.0-8.0) Ur Specific State Road (1.001-1.035) Urine Protein (Negative) Urine Glucose (UA) (Negative) Urine Ketones (Negative) Urine Blood (Negative) Urine Nitrite (Negative) Urine Bilirubin (Negative) Urine Urobilinogen (<2.0) mg/dL Ur Leukocyte Esterase (Negative) 06/09/17 06/09/17 06/09/17 Range/Units 08:00 08:00 08:00 WBC (3.8-10.6) k/uL RBC (3.80-5.40) m/uL Hgb (11.4-16.0) gm/dL Hct (34.0-46.0) % MCV (80.0-100.0) fL MCH (25.0-35.0) pg MCHC (31.0-37.0) g/dL RDW (11.5-15.5) % Plt Count (150-450) k/uL Neutrophils % % Lymphocytes % % Monocytes % % Eosinophils % % Basophils % % Neutrophils # (1.3-7.7) k/uL Lymphocytes # (1.0-4.8) k/uL Monocytes # (0-1.0) k/uL Eosinophils # (0-0.7) k/uL Basophils # (0-0.2) k/uL PT 10.0 (9.0-12.0) sec INR 1.0 (<1.2) APTT 20.3 L (22.0-30.0) sec Sodium (137-145) mmol/L Potassium (3.5-5.1) mmol/L Chloride (98-107) mmol/L Carbon Dioxide (22-30) mmol/L Anion Gap mmol/L BUN (7-17) mg/dL Creatinine (0.52-1.04) mg/dL Est GFR (CKD-EPI)AfAm (>60 ml/min/1.73 sqM) Est GFR (CKD-EPI)NonAf (>60 ml/min/1.73 sqM) Glucose (74-99) mg/dL Plasma Lactic Acid Sudhakar (0.7-2.0) mmol/L Calcium (8.4-10.2) mg/dL Magnesium (1.6-2.3) mg/dL Total Bilirubin (0.2-1.3) mg/dL AST (14-36) U/L ALT (9-52) U/L Alkaline Phosphatase (38-126) U/L Troponin I <0.012 (0.000-0.034) ng/mL NT-Pro-B Natriuret Pep 241 pg/mL Total Protein (6.3-8.2) g/dL Albumin (3.5-5.0) g/dL Amylase (30-110) U/L Lipase (23-300) U/L Urine Color Urine Appearance (Clear) Urine pH (5.0-8.0) Ur Specific State Road (1.001-1.035) Urine Protein (Negative) Urine Glucose (UA) (Negative) Urine Ketones (Negative) Urine Blood (Negative) Urine Nitrite (Negative) Urine Bilirubin (Negative) Urine Urobilinogen (<2.0) mg/dL Ur Leukocyte Esterase (Negative) 06/09/17 Range/Units 11:18 WBC (3.8-10.6) k/uL RBC (3.80-5.40) m/uL Hgb (11.4-16.0) gm/dL Hct (34.0-46.0) % MCV (80.0-100.0) fL MCH (25.0-35.0) pg MCHC (31.0-37.0) g/dL RDW (11.5-15.5) % Plt Count (150-450) k/uL Neutrophils % % Lymphocytes % % Monocytes % % Eosinophils % % Basophils % % Neutrophils # (1.3-7.7) k/uL Lymphocytes # (1.0-4.8) k/uL Monocytes # (0-1.0) k/uL Eosinophils # (0-0.7) k/uL Basophils # (0-0.2) k/uL PT (9.0-12.0) sec INR (<1.2) APTT (22.0-30.0) sec Sodium (137-145) mmol/L Potassium (3.5-5.1) mmol/L Chloride (98-107) mmol/L Carbon Dioxide (22-30) mmol/L Anion Gap mmol/L BUN (7-17) mg/dL Creatinine (0.52-1.04) mg/dL Est GFR (CKD-EPI)AfAm (>60 ml/min/1.73 sqM) Est GFR (CKD-EPI)NonAf (>60 ml/min/1.73 sqM) Glucose (74-99) mg/dL Plasma Lactic Acid Sudhakar (0.7-2.0) mmol/L Calcium (8.4-10.2) mg/dL Magnesium (1.6-2.3) mg/dL Total Bilirubin (0.2-1.3) mg/dL AST (14-36) U/L ALT (9-52) U/L Alkaline Phosphatase (38-126) U/L Troponin I (0.000-0.034) ng/mL NT-Pro-B Natriuret Pep pg/mL Total Protein (6.3-8.2) g/dL Albumin (3.5-5.0) g/dL Amylase (30-110) U/L Lipase (23-300) U/L Urine Color Yellow Urine Appearance Clear (Clear) Urine pH 5.0 (5.0-8.0) Ur Specific State Road 1.018 (1.001-1.035) Urine Protein Negative (Negative) Urine Glucose (UA) Negative (Negative) Urine Ketones Negative (Negative) Urine Blood Negative (Negative) Urine Nitrite Negative (Negative) Urine Bilirubin Negative (Negative) Urine Urobilinogen <2.0 (<2.0) mg/dL Ur Leukocyte Esterase Negative (Negative) 06/09/17 11:22 EKG shows sinus rhythm, inferior infarct age undetermined. Ventricular rate of 76 bpm. Verbal 190 ms. QRS duration 80 ms. QT QTC 396/445 ms. No evidence of ST elevation or T-wave inversion. - Radiology Data Radiology results: report reviewed Disposition Clinical Impression: Diarrhea, Nausea & vomiting Disposition: HOME SELF-CARE Condition: Good Instructions: Acute Nausea and Vomiting (ED) Additional Instructions: Follow-up with primary care provider in next 1-2 days. Take the medications as prescribed. Return to emergency department if any alarming signs or symptoms occur. Prescriptions: Ondansetron Odt [Zofran Odt] 4 mg PO Q8HR PRN #12 tab PRN Reason: Nausea Referrals: Lee Stephenson MD [Primary Care Provider] - 1-2 days Time of Disposition: 11:42
[2017-06-09 09:16] LABS: Albumin 3.8 g/dL (3.5-5.0); Calcium 9.2 mg/dL (8.4-10.2); Magnesium 1.5 mg/dL (1.6-2.3); Potassium 4.4 mmol/L (3.5-5.1); Total Bilirubin 1.2 mg/dL (0.2-1.3); Total Protein 6.7 g/dL (6.3-8.2)
--- NOTE | 2017-06-09 09:31 | XR ---
EXAMINATION TYPE: XR chest 2V DATE OF EXAM: 06/09/2017 COMPARISON: 08/30/[address] 05/16/2015 HISTORY: 81-year-old female with pain, near syncope TECHNIQUE: AP and lateral views FINDINGS: Heart upper limits of normal in size. Atherosclerotic arch calcifications. Mild diffuse interstitial prominence is unchanged. Some focal medial right basilar opacity is unchanged and corresponds to prom inent epicardial fat pad when correlating with CT of 05/16/2015. No consolidation or pleural effusion. IMPRESSION: Stable exam. No acute cardiopulmonary process.
--- NOTE | 2017-06-09 09:34 | XR ---
EXAMINATION TYPE: XR KUB, 2 views DATE OF EXAM: 06/09/2017 CLINICAL DATA: 81-year-old female near syncope, pain, [facility] COMPARISON: 03/31/2015 FINDINGS: Chest reported separately. Supine imaging limited for assessment of free intraperitoneal air. Scattered small bowel air is present. No dilated bowel loops. No significant stool burden. Small pelvic phleboliths. Some right mid abdominal calcifications were also present on 03/31/2015 sugg esting additional phleboliths. IMPRESSION: Nonobstructive bowel gas pattern. No significant stool burden.
[2017-06-09 09:35] LABS: Partial Thromboplastin Time 20.3 sec (22.0-30.0)
[2017-06-09 11:33] LABS: Appearance,Urine Clear (Clear); Bilirubin,Urine Negative (Negative); Blood,Urine Negative (Negative); Color,Urine Yellow; Glucose,Urine (UA) Negative (Negative); Ketones,Urine Negative (Negative); Leukocyte Esterase,Urine Negative (Negative); Nitrite,Urine Negative (Negative); Protein,Urine Negative (Negative); Specific Gravity,Urine 1.018 (1.001-1.035); Urobilinogen,Urine <2.0 mg/dL (<2.0)
[2017-06-09 12:45] VITALS: BP 122/60; PULSE 79; RESP 16; TEMP 97.1
--- NOTE | 2017-06-12 02:07 | CDI ---
Documentation Clarification OP Dear KYMBERLY Bahena: Please do addendum to ED report for Physical exam and MDM. Thank you, Luciana Kam Potato Chip Maker If you have any question, Please contact seniour insight manager at [phone] [facility]
== END 2017-06-09 12:45 | disposition home or self-care (01) ==
LOC: EC 07:58
DX: R11.2 Nausea with vomiting, unspecified (principal); R19.7 Diarrhea, unspecified; R42 Dizziness and giddiness; I25.119 Atherosclerotic heart disease of native coronary artery with unspecified angina pectoris; I10 Essential (primary) hypertension; F41.9 Anxiety disorder, unspecified; Z85.89 Personal history of malignant neoplasm of other organs and systems; Z87.891 Personal history of nicotine dependence; Z79.82 Long term (current) use of aspirin; Z79.899 Other long term (current) drug therapy; Z88.5 Allergy status to narcotic agent
CPT/HCPCS: 36415; 93005; 83880; 80053; 82150; 83605; 83690; 83735; 84484; 85025; 85610; 85730; 81003; 71046; 74018; 99285; 96374; 96361 ×3; C9113

== ENCOUNTER 2017-08-26 10:33 | Day surgery (SDC) | payer MEDICARE, BC ==
[2017-08-21 11:34] VITALS: BMI 23.9
[2017-08-26 12:48] VITALS: TEMP 97.3
[2017-08-26] MEDS ORDERED: LACTATED RINGERS 1,000 ML IV ONE (13:01)
[2017-08-26] MEDS ORDERED: PROPOFOL 10 MG/ML 20 ML VIAL IV ONE (13:16)
[2017-08-26] MEDS ORDERED: LIDOCAINE 1% INJ 10MG/ML (20 ML MDV) ONE (13:16)
--- NOTE | 2017-08-26 13:35 | P.PCN ---
Date of Procedure: 08/26/17 Procedure(s) Performed: BRIEF HISTORY: Patient is a 81-year-old, pleasant, white female, scheduled for an upper endoscopy as part of evaluation of epigastric for the last 6 months duration. Denies any recent NSAID use. No prior history of peptic ulcer disease.. PROCEDURE PERFORMED: Esophagogastroduodenoscopy with biopsy. PREOPERATIVE DIAGNOSIS: And chronic epigastric pain of 6 months duration. IV sedation per anesthesia. PROCEDURE: After informed consent was obtained, the patient was brought into the endoscopy unit. IV sedation was administered by Anesthesia under continuous monitoring. Initially the Olympus GIF-140 video endoscope was inserted into the mouth. Esophagus intubated without any difficulty. It was gradually advanced into the stomach and duodenum and carefully examined. The bulb and the second part of the duodenum appeared normal. The scope at this time was withdrawn to the stomach, adequately insufflated with air, and upon careful examination, mucosa of the antrum, had mild gastritis and biopsies were done from this area. The body, cardia and the fundus appeared normal. The scope was then withdrawn into the esophagus. The GE junction was located at 39 cm from the incisors. The esophagus appeared normal. There was one small superficial erosions in the GE junction and the patient tolerated the procedure well. IMPRESSION: 1. Mild antral gastritis. 2. LA grade a reflux esophagitis. RECOMMENDATIONS: The findings of this examination were discussed with the patient as well as a family. She will continue with Prilosec 20 mg twice a day and follow antireflux measures. She was also advised to follow with the biopsy results.
[2017-08-26 13:50] VITALS: RESP 16
[2017-08-26 13:58] VITALS: BP 110/65; PULSE 60
== END 2017-08-26 14:14 | disposition home or self-care (01) ==
LOC: ORWHC2ENDO 10:33
PROVIDERS: ATTEND Internal Medicine Gastroenterology
DX: K21.0 Gastro-esophageal reflux disease with esophagitis (principal); K31.9 Disease of stomach and duodenum, unspecified; K29.60 Other gastritis without bleeding; Z79.82 Long term (current) use of aspirin; Z79.899 Other long term (current) drug therapy; I10 Essential (primary) hypertension; E78.5 Hyperlipidemia, unspecified; J44.9 Chronic obstructive pulmonary disease, unspecified; K21.9 Gastro-esophageal reflux disease without esophagitis; Z88.5 Allergy status to narcotic agent
CPT/HCPCS: 88305; 43239; J2001; J2704

== ENCOUNTER 2018-01-08 16:14 | Emergency (ER) | payer MEDICARE, BC ==
[2018-01-08 16:20] VITALS: TEMP 97.7
[2018-01-08] MEDS ORDERED: ORPHENADRINE 30 MG/ML 2 ML VIAL IVP STA (16:38)
--- NOTE | 2018-01-08 16:38 | ED ---
Extremity Problem HPI - General Chief complaint: Extremity Problem,Nontraumatic Stated complaint: R shoulder pain Time Seen by Provider: 01/08/18 16:20 Source: patient, RN notes reviewed, old records reviewed Mode of arrival: ambulatory Limitations: no limitations - History of Present Illness Initial comments: Patient is an 82-year-old female who presents emergency Department due to complaint of onset of right shoulder pain. She reports that it woke her up this morning. She sleeps on her abdomen with her arms above her head. Patient states that she has had no fevers or chills. She denies any significant shortness of breath. She reports this pain is worse in any of her previous extremity pains. Patient states that she has had no history of rotator cuff injury. She denies a peripheral paresthesias. Patient reports the pain is worse with certain movements. Patient states that she's had no headache. - Related Data Home Medications Medication Instructions Recorded Confirmed clonazePAM [KlonoPIN] 0.5 mg PO DAILY@1400 PRN 03/14/15 01/08/18 Multivitamins, Thera [Multivitamin 1 tab PO DAILY 08/30/16 01/08/18 (formulary)] Omeprazole [PriLOSEC] 20 mg PO DAILY 08/30/16 01/08/18 clonazePAM [KlonoPIN] 0.25 mg PO BID@0800,2100 06/09/17 01/08/18 Atenolol [Tenormin] 50 mg PO DAILY 08/26/17 01/08/18 Losartan [Cozaar] 50 mg PO DAILY 01/08/18 01/08/18 Previous Rx's Medication Instructions Recorded Cyclobenzaprine [Flexeril] 10 mg PO TID #12 tab 01/08/18 traMADol HCl [Ultram] 50 mg PO Q6HR PRN 3 Days #12 tab 01/08/18 Allergies Allergy/AdvReac Type Severity Reaction Status Date / Time codeine Allergy Unknown Verified 01/08/18 16:58 Review of Systems ROS Statement: Those systems with pertinent positive or pertinent negative responses have been documented in the HPI. ROS Other: All systems not noted in ROS Statement are negative. Past Medical History Past Medical History: Coronary Artery Disease (CAD), Cancer, Chest Pain / Angina , COPD, GERD/Reflux, Hypertension Additional Past Medical History / Comment(s): STATES TOLD "ENLARGED HEART", OCCASIONAL SOB., SKIN CANCER, BACK PAIN., STATES "SPOT REMOVED FROM HER BRAIN". , HAVING UPPER EPIGASTRIC PAIN. History of Any Multi-Drug Resistant Organisms: None Reported Past Surgical History: Heart Catheterization Additional Past Surgical History / Comment(s): BRAIN SURGERY, SKIN CANCER, TUBAL , HEART CATH (08/2016 @ [facility]) Past Anesthesia/Blood Transfusion Reactions: No Reported Reaction Past Psychological History: Anxiety Smoking Status: Former smoker Past Alcohol Use History: None Reported Past Drug Use History: None Reported - Past Family History Mother Family Medical History: Cancer Additional Family Medical History / Comment(s): BREAST CANCER General Exam - General Exam Comments Initial Comments: 82-year-old female. Limitations: no limitations General appearance: alert, in no apparent distress Head exam: Present: atraumatic, normocephalic, normal inspection Eye exam: Present: normal appearance, PERRL, EOMI. Absent: scleral icterus, conjunctival injection, periorbital swelling ENT exam: Present: normal exam, mucous membranes moist Neck exam: Present: normal inspection. Absent: tenderness, meningismus, lymphadenopathy Respiratory exam: Present: normal lung sounds bilaterally. Absent: respiratory distress, wheezes, rales, rhonchi, stridor Cardiovascular Exam: Present: regular rate, normal rhythm, normal heart sounds. Absent: systolic murmur, diastolic murmur, rubs, gallop, clicks GI/Abdominal exam: Present: soft, normal bowel sounds. Absent: distended, tenderness, guarding, rebound, rigid Extremities exam: Present: normal inspection, full ROM, normal capillary refill. Absent: tenderness, pedal edema, joint swelling, calf tenderness Back exam: Present: normal inspection Neurological exam: Present: alert, oriented X3, CN II-XII intact Psychiatric exam: Present: normal affect, normal mood Course Vital Signs 01/08/18 01/08/18 01/08/18 16:17 18:25 18:34 Temperature 97.7 F Pulse Rate 89 64 Respiratory 20 18 Rate Blood Pressure 178/77 142/69 O2 Sat by Pulse 95 95 91 L Oximetry 01/08/18 01/08/18 19:17 19:57 Temperature Pulse Rate 75 Respiratory 18 Rate Blood Pressure 153/82 O2 Sat by Pulse 97 95 Oximetry Medical Decision Making - Medical Decision Making Patient is an 82-year-old female who presents emergency Department due to complaint of onset of right shoulder pain. She reports that it woke her up this morning. Patient pain was not initially reproducible with movment or palpation. Further workup initiated. Patient IV established and labs obtained. EKG was negatie for acute changes, and she denies chest pain. Patient did have elevated DDimer, which we proceeded to do CT scan. This is negative for PE. Patient has improvement after pain medication. Discussed at this time, patient advised to follow up with PCP and orthopedic. Discussed strict return parameters. - Lab Data Result diagrams: 01/08/18 17:05 01/08/18 17:05 Lab Results 01/08/18 01/08/18 01/08/18 Range/Units 17:05 17:05 17:05 WBC 9.1 (3.8-10.6) k/uL RBC 4.68 (3.80-5.40) m/uL Hgb 13.6 (11.4-16.0) gm/dL Hct 41.6 (34.0-46.0) % MCV 88.9 (80.0-100.0) fL MCH 29.1 (25.0-35.0) pg MCHC 32.7 (31.0-37.0) g/dL RDW 13.0 (11.5-15.5) % Plt Count 266 (150-450) k/uL Neutrophils % 69 % Lymphocytes % 19 % Monocytes % 8 % Eosinophils % 2 % Basophils % 1 % Neutrophils # 6.2 (1.3-7.7) k/uL Lymphocytes # 1.7 (1.0-4.8) k/uL Monocytes # 0.8 (0-1.0) k/uL Eosinophils # 0.1 (0-0.7) k/uL Basophils # 0.0 (0-0.2) k/uL PT (9.0-12.0) sec INR (<1.2) APTT (22.0-30.0) sec D-Dimer (<0.60) mg/L FEU Sodium 141 (137-145) mmol/L Potassium 4.1 (3.5-5.1) mmol/L Chloride 107 (98-107) mmol/L Carbon Dioxide 26 (22-30) mmol/L Anion Gap 8 mmol/L BUN 23 H (7-17) mg/dL Creatinine 0.93 (0.52-1.04) mg/dL Est GFR (CKD-EPI)AfAm 66 (>60 ml/min/1.73 sqM) Est GFR (CKD-EPI)NonAf 57 (>60 ml/min/1.73 sqM) Glucose 103 H (74-99) mg/dL Calcium 9.9 (8.4-10.2) mg/dL Magnesium 1.7 (1.6-2.3) mg/dL Total Bilirubin 0.9 (0.2-1.3) mg/dL AST 26 (14-36) U/L ALT 21 (9-52) U/L Alkaline Phosphatase 78 (38-126) U/L Total Creatine Kinase 46 (30-135) U/L CK-MB (CK-2) 0.4 (0.0-2.4) ng/mL CK-MB (CK-2) Rel Index 0.9 Troponin I 0.014 (0.000-0.034) ng/mL Total Protein 7.4 (6.3-8.2) g/dL Albumin 4.1 (3.5-5.0) g/dL 01/08/18 Range/Units 17:05 WBC (3.8-10.6) k/uL RBC (3.80-5.40) m/uL Hgb (11.4-16.0) gm/dL Hct (34.0-46.0) % MCV (80.0-100.0) fL MCH (25.0-35.0) pg MCHC (31.0-37.0) g/dL RDW (11.5-15.5) % Plt Count (150-450) k/uL Neutrophils % % Lymphocytes % % Monocytes % % Eosinophils % % Basophils % % Neutrophils # (1.3-7.7) k/uL Lymphocytes # (1.0-4.8) k/uL Monocytes # (0-1.0) k/uL Eosinophils # (0-0.7) k/uL Basophils # (0-0.2) k/uL PT 9.7 (9.0-12.0) sec INR 1.0 (<1.2) APTT 24.2 (22.0-30.0) sec D-Dimer 4.25 H (<0.60) mg/L FEU Sodium (137-145) mmol/L Potassium (3.5-5.1) mmol/L Chloride (98-107) mmol/L Carbon Dioxide (22-30) mmol/L Anion Gap mmol/L BUN (7-17) mg/dL Creatinine (0.52-1.04) mg/dL Est GFR (CKD-EPI)AfAm (>60 ml/min/1.73 sqM) Est GFR (CKD-EPI)NonAf (>60 ml/min/1.73 sqM) Glucose (74-99) mg/dL Calcium (8.4-10.2) mg/dL Magnesium (1.6-2.3) mg/dL Total Bilirubin (0.2-1.3) mg/dL AST (14-36) U/L ALT (9-52) U/L Alkaline Phosphatase (38-126) U/L Total Creatine Kinase (30-135) U/L CK-MB (CK-2) (0.0-2.4) ng/mL CK-MB (CK-2) Rel Index Troponin I (0.000-0.034) ng/mL Total Protein (6.3-8.2) g/dL Albumin (3.5-5.0) g/dL 01/08/18 17:24 EKG shows sinus rhythm normal ECG. Ventricular 60 beats retina. Pupils 184 ms. QRS duration 86 ms. QT QTc is 382/46. - Radiology Data Radiology results: report reviewed CT shows no evidence of PE. Mild fibrotic changes at the lung bases. No change compared old exam. Shoulder xray is negative for fracture. Disposition Clinical Impression: Right shoulder pain Disposition: HOME SELF-CARE Condition: Good Instructions: Rotator Cuff Injury (ED) Additional Instructions: Patient advised to follow-up with primary care physician. Return to the emergency department if any alarming signs or symptoms occur. Prescriptions: Cyclobenzaprine [Flexeril] 10 mg PO TID #12 tab traMADol HCl [Ultram] 50 mg PO Q6HR PRN 3 Days #12 tab PRN Reason: Pain Is patient prescribed a controlled substance at d/c from ED?: No Referrals: Lee Stephenson MD [Primary Care Provider] - 1-2 days Danie Watson MD [Medical Doctor] - 1-2 days Time of Disposition: 19:41
[2018-01-08 17:35] LABS: Basophils % (A) 1 %; Eosinophils # (A) 0.1 k/uL (0-0.7); Eosinophils % (A) 2 %; HCT 41.6 % (34.0-46.0); HGB 13.6 gm/dL (11.4-16.0); Lymphocytes # (A) 1.7 k/uL (1.0-4.8); Lymphocytes % (A) 19 %; MCH 29.1 pg (25.0-35.0); MCHC 32.7 g/dL (31.0-37.0); MCV 88.9 fL (80.0-100.0); Mean Platelet Volume 6.9; Monocytes # (A) 0.8 k/uL (0-1.0); Monocytes % (A) 8 %; Neutrophils # (A) 6.2 k/uL (1.3-7.7); Neutrophils % (A) 69 %; Platelet Count 266 k/uL (150-450); RBC 4.68 m/uL (3.80-5.40); WBC 9.1 k/uL (3.8-10.6)
[2018-01-08 17:39] LABS: Albumin 4.1 g/dL (3.5-5.0); Calcium 9.9 mg/dL (8.4-10.2); Magnesium 1.7 mg/dL (1.6-2.3); Potassium 4.1 mmol/L (3.5-5.1); Total Bilirubin 0.9 mg/dL (0.2-1.3); Total Protein 7.4 g/dL (6.3-8.2)
--- NOTE | 2018-01-08 17:46 | XR ---
EXAMINATION TYPE: XR shoulder complete RT DATE OF EXAM: 01/08/2018 COMPARISON: NONE HISTORY: Shoulder pain TECHNIQUE: 3 views FINDINGS: I see no fracture nor dislocation. There is spurring at the AC joint. Glenohumeral joint is anatomic. IMPRESSION: No acute abnormality of the right shoulder.
[2018-01-08 17:48] LABS: Partial Thromboplastin Time 24.2 sec (22.0-30.0); Prothrombin Time 9.7 sec (9.0-12.0)
--- NOTE | 2018-01-08 17:48 | XR ---
EXAMINATION TYPE: XR chest 2V DATE OF EXAM: 01/08/2018 COMPARISON: 06/09/2017 HISTORY: Shoulder pain TECHNIQUE: Frontal and lateral views of the chest are obtained. FINDINGS: There is no heart failure nor confluent pneumonic infiltrate. Thoracic aorta is atheromato us. There is slight coarsening of the markings at the lateral right lung base. IMPRESSION: Minimal pleural reaction or infiltrate at the lateral right lung base is new compared to old exam. Normal heart.
[2018-01-08 17:51] LABS: D-Dimer 4.25 mg/L FEU (<0.60)
[2018-01-08] MEDS ORDERED: MORPHINE SULFATE 4 MG/ML SYRINGE IVP STA (18:09)
[2018-01-08 18:10] LABS: Creatine Kinase MB 0.4 ng/mL (0.0-2.4); Troponin I 0.014 ng/mL (0.000-0.034)
[2018-01-08 18:27] VITALS: RESP 18
--- NOTE | 2018-01-08 19:18 | CT ---
EXAMINATION TYPE: CT chest angio for PE DATE OF EXAM: 01/08/2018 COMPARISON: 03/14/2015 HISTORY: chest pain radiating into right shoulder CT DLP: 260 mGycm Automated exposure control for dose reduction was used. CONTRAST: CT Chest for pulmonary embolism performed with with IV Contrast, patient injected with 66 mL of Isovu e 370. FINDINGS: Heart size is fairly normal. There is no pericardial effusion. Thoracic aorta is atheromatous. There is no evidence of aneurysm or dissection. I see no filling defects in the pulmonary arteries. There are no hilar masses. There is no mediastina l adenopathy. There is mild reticular density at the lung bases consistent with fibrosis. There is no evidence of a pulmonary mass. There is spurring in the thoracic spine. There is no compression fracture. IMPRESSION: No evidence of pulmonary embolism. Mild fibrotic changes at the lung bases. No change compared to old exam.
[2018-01-08 20:05] VITALS: BP 153/82; PULSE 75
== END 2018-01-08 20:05 | disposition home or self-care (01) ==
LOC: EC 16:14
DX: M25.511 Pain in right shoulder (principal); F41.9 Anxiety disorder, unspecified; I25.119 Atherosclerotic heart disease of native coronary artery with unspecified angina pectoris; K21.9 Gastro-esophageal reflux disease without esophagitis; I10 Essential (primary) hypertension; Z79.899 Other long term (current) drug therapy; Z88.5 Allergy status to narcotic agent; Z95.5 Presence of coronary angioplasty implant and graft; Z85.828 Personal history of other malignant neoplasm of skin; Z87.891 Personal history of nicotine dependence
CPT/HCPCS: 36415; 93005; 85379; 80053; 82550; 82553; 83735; 84484; 85025; 85610; 85730; 73030; 71046; 71275; 99284; 96374; 96375; J2270; J2360; Q9967

== ENCOUNTER 2018-03-18 15:31 | Emergency (ER) | payer MEDICARE, BC ==
[2018-03-18 15:37] VITALS: RESP 18; TEMP 98.3
[2018-03-18] MEDS ORDERED: MECLIZINE 25 MG TAB PO STA (16:01)
--- NOTE | 2018-03-18 16:09 | ED ---
General Adult HPI - General Chief complaint: Neuro Symptoms/Deficit Stated complaint: dizziness Time Seen by Provider: 03/18/18 15:35 Source: patient, RN notes reviewed Mode of arrival: ambulatory Limitations: no limitations - History of Present Illness Initial comments: This is an 82-year-old female who presents emergency Department complaining of dizziness. Patient states yesterday morning when she woke up she felt off- balance when she was walking. Patient states she never fell over but she felt as though she needed to hold onto something when she walked. She states she's not had symptoms like this in the past. Patient denies any headache patient denies any numbness or weakness. Patient denies any visual disturbance or speech disturbance. Patient states she tried to get into her doctor's office today because the symptoms persisted. Patient states she was unable to get in so she went to the urgent care and they sent her over here. Patient denies any recent hearing loss or any tinnitus. Patient denies any palpitations chest pain difficulty breathing. Patient denies any recent fever chills or cough. Patient denies any ear pain or ear drainage. Patient denies any associated nausea. Patient states she notes that the dizziness is worse with movement. - Related Data Home Medications Medication Instructions Recorded Confirmed clonazePAM [KlonoPIN] 0.5 mg PO DAILY@1400 PRN 03/14/15 03/18/18 Omeprazole [PriLOSEC] 20 mg PO DAILY 08/30/16 03/18/18 clonazePAM [KlonoPIN] 0.25 mg PO BID 06/09/17 03/18/18 Atenolol [Tenormin] 50 mg PO DAILY 08/26/17 03/18/18 Losartan [Cozaar] 50 mg PO DAILY 01/08/18 03/18/18 Simvastatin 80 mg PO DAILY 03/18/18 03/18/18 Previous Rx's Medication Instructions Recorded Meclizine [Antivert] 25 mg PO TID #20 tab 03/18/18 Allergies Allergy/AdvReac Type Severity Reaction Status Date / Time codeine Allergy Unknown Verified 03/18/18 17:10 Review of Systems ROS Statement: Those systems with pertinent positive or pertinent negative responses have been documented in the HPI. ROS Other: All systems not noted in ROS Statement are negative. Past Medical History Past Medical History: Coronary Artery Disease (CAD), Cancer, Chest Pain / Angina , COPD, GERD/Reflux, Hypertension Additional Past Medical History / Comment(s): STATES TOLD "ENLARGED HEART", OCCASIONAL SOB., SKIN CANCER, BACK PAIN., STATES "SPOT REMOVED FROM HER BRAIN". , HAVING UPPER EPIGASTRIC PAIN. History of Any Multi-Drug Resistant Organisms: None Reported Past Surgical History: Heart Catheterization Additional Past Surgical History / Comment(s): BRAIN SURGERY, SKIN CANCER, TUBAL , HEART CATH (08/2016 @ [facility]) Past Anesthesia/Blood Transfusion Reactions: No Reported Reaction Past Psychological History: Anxiety Smoking Status: Former smoker Past Alcohol Use History: None Reported Past Drug Use History: None Reported - Past Family History Mother Family Medical History: Cancer Additional Family Medical History / Comment(s): BREAST CANCER General Exam - General Exam Comments Initial Comments: GENERAL: Patient is well-developed and well-nourished. Patient is nontoxic and well- hydrated and is in mild distress. ENT: Neck is soft and supple. No significant lymphadenopathy is noted. Oropharynx is clear. Moist mucous membranes. Neck has full range of motion without eliciting any pain. EYES: The sclera were anicteric and conjunctiva were pink and moist. Extraocular movements were intact and pupils were equal round and reactive to light. Eyelids were unremarkable. PULMONARY: Unlabored respirations. Good breath sounds bilaterally. No audible rales rhonchi or wheezing was noted. CARDIOVASCULAR: There is a regular rate and rhythm without any murmurs gallops or rubs. ABDOMEN: Soft and nontender with normal bowel sounds. SKIN: Skin is clear with no lesions or rashes and otherwise unremarkable. NEUROLOGIC: Patient is alert and oriented x3. Cranial nerves II through XII are grossly intact. Motor and sensory are also intact. Normal speech, volume and content. Symmetrical smile. Finger to nose cerebellar testing was normal bilaterally MUSCULOSKELETAL: Normal extremities with adequate strength and full range of motion. No lower extremity swelling or edema. No calf tenderness. LYMPHATICS: No significant lymphadenopathy is noted PSYCHIATRIC: Normal psychiatric evaluation. Limitations: no limitations Course Vital Signs 03/18/18 03/18/18 15:34 16:56 Temperature 98.3 F Pulse Rate 62 62 Respiratory 18 18 Rate Blood Pressure 136/81 126/71 O2 Sat by Pulse 96 96 Oximetry Medical Decision Making - Medical Decision Making EKG shows normal sinus rhythm at 62 bpm VT interval 170 QRS 70 QT interval 410 QTC is 416. Patient's EKG shows no ST segment elevation or depression or T wave abnormalities are noted After patient had gotten Ativan she was able to ambulate and felt better still a little off balance but not as dizzy as she was earlier. Chest x-ray showed no acute abnormality. CT of the brain showed no acute abnormality. - Lab Data Result diagrams: 03/18/18 16:06 03/18/18 16:06 Lab Results 03/18/18 03/18/18 03/18/18 Range/Units 16:06 16:06 16:06 WBC 8.3 (3.8-10.6) k/uL RBC 4.94 (3.80-5.40) m/uL Hgb 13.7 (11.4-16.0) gm/dL Hct 43.1 (34.0-46.0) % MCV 87.3 (80.0-100.0) fL MCH 27.7 (25.0-35.0) pg MCHC 31.7 (31.0-37.0) g/dL RDW 13.7 (11.5-15.5) % Plt Count 260 (150-450) k/uL Neutrophils % 59 % Lymphocytes % 26 % Monocytes % 9 % Eosinophils % 2 % Basophils % 1 % Neutrophils # 4.9 (1.3-7.7) k/uL Lymphocytes # 2.2 (1.0-4.8) k/uL Monocytes # 0.7 (0-1.0) k/uL Eosinophils # 0.2 (0-0.7) k/uL Basophils # 0.1 (0-0.2) k/uL PT (9.0-12.0) sec INR (<1.2) APTT (22.0-30.0) sec Sodium 140 (137-145) mmol/L Potassium 4.6 (3.5-5.1) mmol/L Chloride 110 H (98-107) mmol/L Carbon Dioxide 24 (22-30) mmol/L Anion Gap 6 mmol/L BUN 25 H (7-17) mg/dL Creatinine 1.25 H (0.52-1.04) mg/dL Est GFR (CKD-EPI)AfAm 46 (>60 ml/min/1.73 sqM) Est GFR (CKD-EPI)NonAf 40 (>60 ml/min/1.73 sqM) Glucose 93 (74-99) mg/dL Calcium 9.9 (8.4-10.2) mg/dL Magnesium 1.6 (1.6-2.3) mg/dL Total Bilirubin 0.9 (0.2-1.3) mg/dL AST 29 (14-36) U/L ALT 25 (9-52) U/L Alkaline Phosphatase 71 (38-126) U/L Total Creatine Kinase 52 (30-135) U/L CK-MB (CK-2) 0.6 (0.0-2.4) ng/mL CK-MB (CK-2) Rel Index 1.2 Troponin I 0.017 (0.000-0.034) ng/mL Total Protein 7.0 (6.3-8.2) g/dL Albumin 4.0 (3.5-5.0) g/dL 03/18/18 Range/Units 16:06 WBC (3.8-10.6) k/uL RBC (3.80-5.40) m/uL Hgb (11.4-16.0) gm/dL Hct (34.0-46.0) % MCV (80.0-100.0) fL MCH (25.0-35.0) pg MCHC (31.0-37.0) g/dL RDW (11.5-15.5) % Plt Count (150-450) k/uL Neutrophils % % Lymphocytes % % Monocytes % % Eosinophils % % Basophils % % Neutrophils # (1.3-7.7) k/uL Lymphocytes # (1.0-4.8) k/uL Monocytes # (0-1.0) k/uL Eosinophils # (0-0.7) k/uL Basophils # (0-0.2) k/uL PT 10.0 (9.0-12.0) sec INR 0.9 (<1.2) APTT 23.3 (22.0-30.0) sec Sodium (137-145) mmol/L Potassium (3.5-5.1) mmol/L Chloride (98-107) mmol/L Carbon Dioxide (22-30) mmol/L Anion Gap mmol/L BUN (7-17) mg/dL Creatinine (0.52-1.04) mg/dL Est GFR (CKD-EPI)AfAm (>60 ml/min/1.73 sqM) Est GFR (CKD-EPI)NonAf (>60 ml/min/1.73 sqM) Glucose (74-99) mg/dL Calcium (8.4-10.2) mg/dL Magnesium (1.6-2.3) mg/dL Total Bilirubin (0.2-1.3) mg/dL AST (14-36) U/L ALT (9-52) U/L Alkaline Phosphatase (38-126) U/L Total Creatine Kinase (30-135) U/L CK-MB (CK-2) (0.0-2.4) ng/mL CK-MB (CK-2) Rel Index Troponin I (0.000-0.034) ng/mL Total Protein (6.3-8.2) g/dL Albumin (3.5-5.0) g/dL Disposition Clinical Impression: Vertigo Disposition: ADMITTED IP TO THIS HOSP Instructions: Vertigo (ED) Prescriptions: Meclizine [Antivert] 25 mg PO TID #20 tab Referrals: Lee Stephenson MD [Primary Care Provider] - 1-2 days Time of Disposition: 18:11
[2018-03-18 16:29] LABS: Basophils # (A) 0.1 k/uL (0-0.2); Basophils % (A) 1 %; Eosinophils # (A) 0.2 k/uL (0-0.7); Eosinophils % (A) 2 %; HCT 43.1 % (34.0-46.0); HGB 13.7 gm/dL (11.4-16.0); Lymphocytes # (A) 2.2 k/uL (1.0-4.8); Lymphocytes % (A) 26 %; MCH 27.7 pg (25.0-35.0); MCHC 31.7 g/dL (31.0-37.0); MCV 87.3 fL (80.0-100.0); Mean Platelet Volume 6.4; Monocytes # (A) 0.7 k/uL (0-1.0); Monocytes % (A) 9 %; Neutrophils # (A) 4.9 k/uL (1.3-7.7); Neutrophils % (A) 59 %; Platelet Count 260 k/uL (150-450); RBC 4.94 m/uL (3.80-5.40); RDW 13.7 % (11.5-15.5); WBC 8.3 k/uL (3.8-10.6)
[2018-03-18 16:35] LABS: Calcium 9.9 mg/dL (8.4-10.2); Magnesium 1.6 mg/dL (1.6-2.3); Potassium 4.6 mmol/L (3.5-5.1); Total Bilirubin 0.9 mg/dL (0.2-1.3)
[2018-03-18 16:44] LABS: INR 0.9 (<1.2); Partial Thromboplastin Time 23.3 sec (22.0-30.0)
[2018-03-18 16:51] LABS: Creatine Kinase MB 0.6 ng/mL (0.0-2.4); Troponin I 0.017 ng/mL (0.000-0.034)
--- NOTE | 2018-03-18 17:02 | XR ---
EXAMINATION TYPE: XR chest 2V DATE OF EXAM: 03/18/2018 COMPARISON: 01/08/2018 HISTORY: Dizziness TECHNIQUE: Frontal and lateral views of the chest are obtained. FINDINGS: There is no heart failure nor confluent pneumonic infiltrate. Costophrenic angles are amy r. Thoracic aorta is atheromatous. IMPRESSION: No active cardiopulmonary disease. Atheromatous aorta. No change compared to old exam.
--- NOTE | 2018-03-18 17:24 | CT ---
EXAMINATION TYPE: CT brain wo con DATE OF EXAM: 03/18/2018 COMPARISON: None HISTORY: Dizziness CT DLP: mGycm Automated exposure control for dose reduction was used. FINDINGS: There is patchy hypodensity throughout the periventricular white matter. There is enlargement of the ventricles. There is diffuse cerebral cortical atrophy. There is no mass effect nor midline shift. Th ere is no sign of intracranial hemorrhage. There is previous surgery in the right side of the sphenoi d bone. There is old right temporal craniotomy. IMPRESSION: CEREBRAL ATROPHY AND CHRONIC SMALL VESSEL ISCHEMIA. PREVIOUS SURGERY. NO ACUTE INTRACRANIAL ABNORMALI TY.
[2018-03-18 18:27] VITALS: BP 121/67; PULSE 60
== END 2018-03-18 18:30 | disposition other institution (70) ==
LOC: EC 15:31
DX: R42 Dizziness and giddiness (principal); I10 Essential (primary) hypertension; I25.119 Atherosclerotic heart disease of native coronary artery with unspecified angina pectoris; K21.9 Gastro-esophageal reflux disease without esophagitis; F41.9 Anxiety disorder, unspecified; Z87.891 Personal history of nicotine dependence; Z88.5 Allergy status to narcotic agent; Z79.899 Other long term (current) drug therapy; Z85.828 Personal history of other malignant neoplasm of skin; Z86.69 Personal history of other diseases of the nervous system and sense organs; Z95.818 Presence of other cardiac implants and grafts; Z98.890 Other specified postprocedural states
CPT/HCPCS: 36415; 70450; 71046; 80053; 82550; 82553; 83735; 84484; 85025; 85610; 85730; 93005; 99285

== ENCOUNTER 2018-06-15 06:53 | Day surgery (SDC) | payer MEDICARE, BC ==
[2018-06-09 12:02] VITALS: BMI 23.9
[~2018-06-15 06:53] MED LIST: LACTATED RINGERS 1,000 ML IV SCH
[2018-06-15] MEDS: CYCLOPENTOLATE 1% OPHTH SOLN 2 ML BTL OP ONE ×3 (07:10→07:28)
[2018-06-15] MEDS: PHENYLEPHRINE 10% OPHTH DROPS 5 ML BTL OP ONE ×3 (07:13→07:31)
[2018-06-15 07:15] VITALS: RESP 17; TEMP 97
[2018-06-15] MEDS: KETOROLAC 0.5% OPHTH DROPS 5 ML BTL OP ONE ×3 (07:16→07:34)
[2018-06-15] MEDS ORDERED: HYALURONATE SODIUM INTRAOCULAR 1 EACH SYRINGE (10MG/ML) INTRAOCULA ONE (08:11)
[2018-06-15] MEDS ORDERED: BALANCED SALT IRRIG SOLN COMB2 15 ML IRRIG.SOLN IRRIGATION ONE (08:11)
[2018-06-15] MEDS ORDERED: PROPOFOL 10 MG/ML 20 ML VIAL IV ONE (08:12)
[2018-06-15] MEDS ORDERED: EPINEPHrine (PF) 0.5 ML in BALANCED SALT IRRIG SOLN COMB2 500 ML IRRIGATION ONE (08:19)
[2018-06-15 09:20] VITALS: BP 161/63; PULSE 57
--- NOTE | 2018-06-15 09:25 | P.OP ---
Date of Procedure: 06/15/18 Procedure(s) Performed: PREOPERATIVE DIAGNOSIS: Cataract, left eye. POSTOPERATIVE DIAGNOSIS: Cataract, left eye. OPERATION: Phacoemulsification of cataract, intraocular lens placement, left eye. DESCRIPTION OF PROCEDURE: The patient was taken to the operating room. Intravenous Propofol was given so as to bring about sedation. The following mixture was given for local anesthesia: 5 mL of 2% lidocaine, 5 mL of 0.75% Marcaine, and 1 mL of Wydase. Approximately 4 mL was injected in the retrobulbar space of the surgical eye. Additional 1 mL was then directed to the temporal area of the surgical eye. This was performed to allow adequate neurological block of the facial muscles. The patient was revived. The patient was prepped and draped in the usual sterile manner for the operative eye. A lid speculum was put into position. The conjunctiva was resected back from the limbus in the 12 o'clock position. Bleeding was controlled with electrocautery. A #69 blade was then used and a half-thickness scleral incision approximately 1-mm posterior to the limbus was made on bare sclera. This was shelved in the clear cornea using a crescent knife. Next a 15-degree blade was used to make a stab incision at the 3 o'clock position at the corneolimbal interface. A keratome blade was then used and the superior wound was extended into the anterior chamber. Viscoelastic was injected into the anterior chamber to maintain its form. A cystotome was used and a continuous anterior capsulot krysta was made. Hydrodissection of the lens cortex using a blunt cannula and BSS was performed. A phaco probe was then introduced and a groove extending from 12 to 6 o'clock in the lens was created. A Phill wand was used through the stab incision and used to perform a divide and conquer dismantling of the cataract. An irrigation aspiration probe was utilized and any residual cortex was removed from the eye. Again, viscoelastic was injected into the anterior chamber. An Amarjit posterior chamber lens implant was placed in a delivery cartridge and injected into the anterior chamber. A Sinskey hook was utilized to spin the lens into position within the capsular bag. The irrigation and aspiration probe was again introduced and any residual viscoelastic was removed from the eye. BSS was injected via blunt canula into the limbal stab incision and the anterior chamber was re-inflated. The conjunctiva was reapproximated using electrocautery. One drop of 0.25% Timoptic was placed over the corneal along with an antibiotic ophthalmic ointment. Two sterile patches and a Avendano eye shield were taped into position. The patient was transported to the recovery room in stable condition. Pathology: none sent Condition: stable Disposition: same day
[2018-06-15] MEDS ORDERED: TIMOLOL 0.5% OPHTH DROPS 5 ML BTL OP ONE (23:00)
[2018-06-15] MEDS ORDERED: BUPIVACAINE (PF) 0.75% 5 ML, HYALURONIDASE, HUMAN RECOMB 150 UNIT, LIDOCAINE 2% (PF) 10... MISCELLANE ONE ×3 (23:00)
[2018-06-15] MEDS ORDERED: TOBRA-DEXAMET 0.3-0.1% OPHTH OINT 3.5 GM TUBE OPHTHALMIC NR (23:00)
== END 2018-06-15 09:41 | disposition home or self-care (01) ==
LOC: OR 06:53
PROVIDERS: ATTEND Ophthalmology
DX: H25.12 Age-related nuclear cataract, left eye (principal); H04.129 Dry eye syndrome of unspecified lacrimal gland; I10 Essential (primary) hypertension; I67.1 Cerebral aneurysm, nonruptured; K21.9 Gastro-esophageal reflux disease without esophagitis; F41.9 Anxiety disorder, unspecified; Z79.82 Long term (current) use of aspirin; Z79.899 Other long term (current) drug therapy; E78.5 Hyperlipidemia, unspecified; Z88.5 Allergy status to narcotic agent
CPT/HCPCS: 66984; V2632; J3470; J2001; J0171; J2704

== ENCOUNTER → 2018-06-28 | Outpatient (CLI) | payer MEDICARE, BC ==
[2018-06-28 16:40] LABS: LDL Cholesterol,Calculated 132.2 mg/dL (0.0-131.0); VLDL Calculation 45.8 mg/dL (5.00-40.00)
== END | disposition home or self-care (01) ==
LOC: LABWHC1 10:54
PROVIDERS: ATTEND Internal Medicine Cardiovascular Disease
DX: E78.2 Mixed hyperlipidemia (principal)
CPT/HCPCS: 36415; 80061; 84450; 84460

== ENCOUNTER → 2019-05-17 | Outpatient (CLI) | payer MEDICARE, BC ==
--- NOTE | 2019-05-17 12:31 | ECHOF ---
Referral Reason:I10 Hypertension MEASUREMENTS -------- HEIGHT: 160.0 cm WEIGHT: 61.2 kg BP: RVIDd: 3.2 cm (< 3.3) IVSd: 1.5 cm (0.6 - 1.1) LVIDd: 3.9 cm (3.9 - 5.3) LVPWd: 1.5 cm (0.6 - 1.1) IVSs: 2.0 cm LVIDs: 2.1 cm LVPWs: 1.7 cm LAESV Index (A-L): 25.58 ml/m Ao Diam: 3.1 cm (2.0 - 3.7) AV Cusp: 1.9 cm (1.5 - 2.6) MV EXCURSION: 12.108 mm (> 18.000) MV EF SLOPE: 42 mm/s (70 - 150) EPSS: 0.9 cm MV E Bertram: 0.65 m/s MV DecT: 205 ms MV A Bertram: 0.93 m/s MV E/A Ratio: 0.70 AR PHT: 751 ms RAP: 5.00 mmHg RVSP: 42.78 mmHg FINDINGS -------- Sinus rhythm. This was a technically adequate study. The left ventricular size is normal. There is moderate concentric left ventricular hypertrophy. O verall left ventricular systolic function is normal with, an EF between 55 - 60 %. The diastolic fi lling pattern is normal for the age of the patient 13.47. The right ventricle is moderately enlarged. Normal LA size by volume 22+/-6 ml/m2. The right atrium is mildly enlarged. Interatrial and interventricular septum intact. There is moderate aortic valve sclerosis. There is xxzb-hk-pwpovvaw aortic regurgitation. There i s no evidence of aortic stenosis. Moderate mitral annular calcification present. Saei-of-umcdfwlz mitral regurgitation is present. Apsf-pg-xxxnheef tricuspid regurgitation present. There is mild to moderate pulmonary hypertension. The right ventricular systolic pressure, as measured by Doppler, is 42.78mmHg. Trace/mild (physiologic) pulmonic regurgitation. The aortic root size is normal. Normal inferior vena cava with normal inspiratory collapse consistent with estimated right atrial pre ssure of 5 mmHg. There is no pericardial effusion. CONCLUSIONS -------- 1. Sinus rhythm. 2. This was a technically adequate study. 3. The left ventricular size is normal. 4. There is moderate concentric left ventricular hypertrophy. 5. Overall left ventricular systolic function is normal with, an EF between 55 - 60 %. 6. The diastolic filling pattern is normal for the age of the patient 13.47 7. The right ventricle is moderately enlarged. 8. Normal LA size by volume 22+/-6 ml/m2. 9. The right atrium is mildly enlarged. 10. Interatrial and interventricular septum intact. 11. There is moderate aortic valve sclerosis. 12. There is zuoc-jk-bkhfnfgs aortic regurgitation. 13. There is no evidence of aortic stenosis. 14. Moderate mitral annular calcification present. 15. Aqwe-nv-tkdlhfov mitral regurgitation is present. 16. Aafp-vy-iubguift tricuspid regurgitation present. 17. There is mild to moderate pulmonary hypertension. 18. The right ventricular systolic pressure, as measured by Doppler, is 42.78mmHg. 19. Trace/mild (physiologic) pulmonic regurgitation. 20. The aortic root size is normal. 21. Normal inferior vena cava with normal inspiratory collapse consistent with estimated right atrial pressure of 5 mmHg. 22. There is no pericardial effusion. CHICKEN BU[employer]ER: Emma Cottrell RDCS
== END | disposition home or self-care (01) ==
LOC: RADECHMAIN 10:40
PROVIDERS: ATTEND Family Medicine
DX: I08.3 Combined rheumatic disorders of mitral, aortic and tricuspid valves (principal); I27.20 Pulmonary hypertension, unspecified
CPT/HCPCS: 93306

== ENCOUNTER → 2021-09-14 | Outpatient (CLI) | payer MEDICARE, BC ==
[2021-09-14 11:19] LABS: Appearance,Urine Cloudy (Clear); Bilirubin,Urine Negative (Negative); Blood,Urine Trace (Negative); Color,Urine Yellow; Glucose,Urine (UA) Negative (Negative); Hyaline Casts,Urine 1 /lpf (0-2); Ketones,Urine Negative (Negative); Leukocyte Esterase,Urine Negative (Negative); Mucus,Urine Few /hpf; Nitrite,Urine Negative (Negative); Protein,Urine 1+ (Negative); RBC,Urine 2 /hpf (0-5); Specific Gravity,Urine 1.028 (1.001-1.035); Squamous Epithelial Cell,Urine 2 /hpf (0-4); WBC,Urine 2 /hpf (0-5)
[2021-09-14 16:27] LABS: HCT 45.4 % (37.2-46.3); HGB 13.9 g/dL (12.0-15.0); MCH 27.8 pg (27.0-32.0); MCHC 30.6 g/dL (32.0-37.0); MCV 90.8 fL (80.0-97.0); Mean Platelet Volume 10.3 fL (9.5-12.2); NRBC Per 100 WBC 0 /100 WBCS (0.0-0.0); Platelet Count 288 X 10*3/uL (140-440); RDW 13.4 % (11.5-14.5); WBC 8.88 X 10*3/uL (4.50-10.00)
[2021-09-14 16:54] LABS: ALT 21 U/L (8-44); AST 21 U/L (13-35); African American GFR (CKD) 60.3 (60.0-200.0); Blood Urea Nitrogen 17.1 mg/dL (9.0-27.0); Calcium 9.5 mg/dL (8.7-10.3); Carbon Dioxide 23.4 mmol/L (20.0-27.5); Chloride 103 mmol/L (96-109); Chol/HDL Ratio 5.35 Ratio; Glucose 109 mg/dL (70-110); LDL Cholesterol,Calculated 117.2 mg/dL (0.0-131.0); Non-African American GFR(CKD) 52.1 (60.0-200.0); Potassium 3.8 mmol/L (3.5-5.5); Sodium 144 mmol/L (135-145)
== END | disposition home or self-care (01) ==
LOC: LABWHC1 09:25
PROVIDERS: ATTEND Family Medicine
DX: I10 Essential (primary) hypertension (principal); E78.5 Hyperlipidemia, unspecified; F03.90 Unspecified dementia, unspecified severity, without behavioral disturbance, psychotic disturbance, mood disturbance, and anxiety
CPT/HCPCS: 36415; 80048; 80061; 81001; 82306; 82607; 83036; 84439; 84443; 84450; 84460; 85027

== ENCOUNTER 2021-10-28 20:20 | Observation (INO) | payer MEDICARE, BC ==
--- NOTE | 2021-10-28 21:18 | ED ---
Fall HPI - General Chief Complaint: Fall Stated Complaint: Poss fall, swollen ankle Time Seen by Provider: 10/28/21 21:13 Source: patient, family, EMS, RN notes reviewed, old records reviewed Mode of arrival: EMS Limitations: no limitations - History of Present Illness Initial Comments: This is a 78-year-old female to the ER for evaluation she is a poor historian secondary to dementia. Patient unable to give history. Patient states that she does have right leg pain. Patient was last seen last night around 8 PM by family and found tonight on the ground. Patient presents by EMS and family member who is here at bedside helped to provide history MD Complaint: fall -: unknown Fall From: standing When Fall Occurred: unsure Fall Witnessed: yes, by family Place Fall Occurred: home Loss of Consciousness: unsure Prolonged Down Time?: yes Symptoms Prior to Fall: none Location - Extremities: Right: Ankle, Foot Severity: moderate Severity scale (1-10): 4 Quality: dull Context: tripped/slipped Associated Symptoms: denies - Related Data Home Medications Medication Instructions Recorded Confirmed atenoloL [Tenormin] 50 mg PO DAILY 08/26/17 10/28/21 Simvastatin 80 mg PO DAILY 03/18/18 10/28/21 Donepezil [Aricept] 5 mg PO DAILY 10/28/21 10/28/21 Losartan Potassium [Cozaar] 25 mg PO DAILY 10/28/21 10/28/21 Allergies Allergy/AdvReac Type Severity Reaction Status Date / Time codeine Allergy Unknown Verified 10/28/21 22:12 Review of Systems ROS Statement: Those systems with pertinent positive or pertinent negative responses have been documented in the HPI. ROS Other: All systems not noted in ROS Statement are negative. Past Medical History Past Medical History: Coronary Artery Disease (CAD), Cancer, COPD, GERD/Reflux, Hypertension Additional Past Medical History / Comment(s): STATES TOLD "ENLARGED HEART", SKIN CANCER, BACK PAIN., ?SPOT REMOVED FROM BRAIN. History of Any Multi-Drug Resistant Organisms: None Reported Past Surgical History: Heart Catheterization Additional Past Surgical History / Comment(s): BRAIN SURGERY, SKIN CANCER, TUBAL , HEART CATH (08/2016 @ [facility]) Past Anesthesia/Blood Transfusion Reactions: No Reported Reaction Past Psychological History: Anxiety, Depression Past Alcohol Use History: None Reported Past Drug Use History: None Reported - Past Family History Mother Family Medical History: Cancer Additional Family Medical History / Comment(s): BREAST CANCER General Exam Limitations: no limitations General appearance: alert, in no apparent distress Head exam: Present: atraumatic, normocephalic, normal inspection Eye exam: Present: normal appearance, PERRL, EOMI. Absent: scleral icterus, conjunctival injection, periorbital swelling ENT exam: Present: normal exam, mucous membranes moist Neck exam: Present: normal inspection. Absent: tenderness, meningismus, lymphadenopathy Respiratory exam: Present: normal lung sounds bilaterally. Absent: respiratory distress, wheezes, rales, rhonchi, stridor Cardiovascular Exam: Present: regular rate, normal rhythm, normal heart sounds. Absent: systolic murmur, diastolic murmur, rubs, gallop, clicks GI/Abdominal exam: Present: soft, normal bowel sounds. Absent: distended, tenderness, guarding, rebound, rigid Extremities exam: Present: normal inspection, full ROM, normal capillary refill. Absent: tenderness, pedal edema, joint swelling, calf tenderness Back exam: Present: normal inspection Neurological exam: Present: alert, oriented X3, CN II-XII intact Psychiatric exam: Present: normal affect, normal mood Skin exam: Present: warm, dry, intact, normal color. Absent: rash Course Vital Signs 10/28/21 20:24 Temperature 98.3 F Pulse Rate 75 Respiratory 18 Rate Blood Pressure 139/66 O2 Sat by Pulse 96 Oximetry - Reevaluation(s) Reevaluation #1: 10/28/21 21:47 Medical records reviewed Reevaluation #2: 10/29/21 00:00 Family informed of results and questions answered Reevaluation #3: 10/29/21 00:00 Patient is not requiring anything for pain - Consultations Consultation #1: spoke with [facility] physicians who agree to admit this patient Procedures - Orthopedic Splinting/Casting Injury #1 Side: right Lower Extremity Injury Location: ankle Lower Extremity Immobilizer: stirrup splint Medical Decision Making - Medical Decision Making 86 female to the emergency department for evaluation suffering from severe dementia secondary to current ankle fracture and splint patient will be admitted for monitoring possible placement. Patient was found down after unknown downtime. Patient several from severe dementia unable to provide any history - Lab Data Result diagrams: 10/28/21 21:37 10/28/21 21:37 Lab Results 10/28/21 10/28/21 10/28/21 Range/Units 21:37 21:37 21:37 WBC 14.6 H (3.8-10.6) k/uL RBC 4.41 (3.80-5.40) m/uL Hgb 12.6 (11.4-16.0) gm/dL Hct 38.3 (34.0-46.0) % MCV 87.0 (80.0-100.0) fL MCH 28.5 (25.0-35.0) pg MCHC 32.8 (31.0-37.0) g/dL RDW 13.2 (11.5-15.5) % Plt Count 294 (150-450) k/uL MPV 7.4 Neutrophils % 86 % Lymphocytes % 6 % Monocytes % 7 % Eosinophils % 0 % Basophils % 0 % Neutrophils # 12.5 H (1.3-7.7) k/uL Lymphocytes # 0.9 L (1.0-4.8) k/uL Monocytes # 1.0 (0-1.0) k/uL Eosinophils # 0.0 (0-0.7) k/uL Basophils # 0.1 (0-0.2) k/uL PT 11.2 (9.0-12.0) sec INR 1.0 (<1.2) APTT 24.4 (22.0-30.0) sec Sodium 139 (137-145) mmol/L Potassium 4.0 (3.5-5.1) mmol/L Chloride 106 (98-107) mmol/L Carbon Dioxide 21 L (22-30) mmol/L Anion Gap 12 mmol/L BUN 29 H (7-17) mg/dL Creatinine 1.04 (0.52-1.04) mg/dL Est GFR (CKD-EPI)AfAm 56 (>60 ml/min/1.73 sqM) Est GFR (CKD-EPI)NonAf 48 (>60 ml/min/1.73 sqM) Glucose 146 H (74-99) mg/dL Calcium 9.4 (8.4-10.2) mg/dL Phosphorus 2.8 (2.5-4.5) mg/dL Magnesium 1.5 L (1.6-2.3) mg/dL Total Bilirubin 2.4 H (0.2-1.3) mg/dL AST 27 (14-36) U/L ALT 18 (4-34) U/L Alkaline Phosphatase 78 (38-126) U/L Creatine Kinase (30-135) U/L Total Protein 6.6 (6.3-8.2) g/dL Albumin 3.6 (3.5-5.0) g/dL 10/28/21 Range/Units 21:37 WBC (3.8-10.6) k/uL RBC (3.80-5.40) m/uL Hgb (11.4-16.0) gm/dL Hct (34.0-46.0) % MCV (80.0-100.0) fL MCH (25.0-35.0) pg MCHC (31.0-37.0) g/dL RDW (11.5-15.5) % Plt Count (150-450) k/uL MPV Neutrophils % % Lymphocytes % % Monocytes % % Eosinophils % % Basophils % % Neutrophils # (1.3-7.7) k/uL Lymphocytes # (1.0-4.8) k/uL Monocytes # (0-1.0) k/uL Eosinophils # (0-0.7) k/uL Basophils # (0-0.2) k/uL PT (9.0-12.0) sec INR (<1.2) APTT (22.0-30.0) sec Sodium (137-145) mmol/L Potassium (3.5-5.1) mmol/L Chloride (98-107) mmol/L Carbon Dioxide (22-30) mmol/L Anion Gap mmol/L BUN (7-17) mg/dL Creatinine (0.52-1.04) mg/dL Est GFR (CKD-EPI)AfAm (>60 ml/min/1.73 sqM) Est GFR (CKD-EPI)NonAf (>60 ml/min/1.73 sqM) Glucose (74-99) mg/dL Calcium (8.4-10.2) mg/dL Phosphorus (2.5-4.5) mg/dL Magnesium (1.6-2.3) mg/dL Total Bilirubin (0.2-1.3) mg/dL AST (14-36) U/L ALT (4-34) U/L Alkaline Phosphatase (38-126) U/L Creatine Kinase 271 H (30-135) U/L Total Protein (6.3-8.2) g/dL Albumin (3.5-5.0) g/dL - EKG Data -: EKG Interpreted by Me (EKG sinus rhythm 66 GA 193 QRS 92 QTC 436) - Radiology Data Radiology results: report reviewed (CT brain C-spine chest and pelvis x-rays are negative, x-ray right ankle shows lateral malleolus fracture nondisplaced), image reviewed Disposition Clinical Impression: Fall, Debility, Weakness, Fracture of right ankle, lateral malleolus, Dementia Disposition: ADMITTED IP TO THIS HOSP Condition: Good Is patient prescribed a controlled substance at d/c from ED?: No Referrals: Son Silvestre DO [Primary Care Provider] - 1-2 days
[2021-10-28] MEDS ORDERED: SODIUM CHLORIDE 0.9% 1,000 ML IV STA ×2 (21:29→23:56)
[2021-10-28 22:02] LABS: Basophils # (A) 0.1 k/uL (0-0.2); Basophils % (A) 0 %; Eosinophils % (A) 0 %; HCT 38.3 % (34.0-46.0); HGB 12.6 gm/dL (11.4-16.0); Lymphocytes # (A) 0.9 k/uL (1.0-4.8); Lymphocytes % (A) 6 %; MCH 28.5 pg (25.0-35.0); MCHC 32.8 g/dL (31.0-37.0); Mean Platelet Volume 7.4; Monocytes % (A) 7 %; Neutrophils # (A) 12.5 k/uL (1.3-7.7); Neutrophils % (A) 86 %; Platelet Count 294 k/uL (150-450); RBC 4.41 m/uL (3.80-5.40); RDW 13.2 % (11.5-15.5); WBC 14.6 k/uL (3.8-10.6)
[2021-10-28 22:09] LABS: Partial Thromboplastin Time 24.4 sec (22.0-30.0); Prothrombin Time 11.2 sec (9.0-12.0)
[2021-10-28 22:10] LABS: Albumin 3.6 g/dL (3.5-5.0); Calcium 9.4 mg/dL (8.4-10.2); Magnesium 1.5 mg/dL (1.6-2.3); Phosphorus 2.8 mg/dL (2.5-4.5); Total Bilirubin 2.4 mg/dL (0.2-1.3); Total Protein 6.6 g/dL (6.3-8.2)
--- NOTE | 2021-10-28 22:24 | XR ---
EXAMINATION TYPE: XR foot complete RT DATE OF EXAM: 10/28/2021 COMPARISON: NONE HISTORY: Pain TECHNIQUE: 3 views FINDINGS: There is Achilles calcaneal spurring. There is soft tissue swelling of the forefoot. I see no fracture nor dislocation. There are no erosions. IMPRESSION: Soft tissue swelling. No fracture. Calcaneal spurring.
--- NOTE | 2021-10-28 22:25 | XR ---
EXAMINATION TYPE: XR ankle complete RT DATE OF EXAM: 10/28/2021 COMPARISON: NONE HISTORY: Pain TECHNIQUE: 3 views FINDINGS: There is nondisplaced transverse fracture of the distal fibula. Ankle mortise is anatomic. There is soft tissue swelling over the lateral malleolus. There is Achilles calcaneal spurring subtal ar joint is intact. IMPRESSION: Acute fracture of the lateral malleolus. Soft tissue swelling.
--- NOTE | 2021-10-28 22:27 | XR ---
EXAMINATION TYPE: XR pelvis AP view DATE OF EXAM: 10/28/2021 COMPARISON: NONE HISTORY: Pain TECHNIQUE: Single view FINDINGS: The pelvic ring is intact. Proximal femurs and hip joints are intact. Sacroiliac joints are intact. IMPRESSION: No acute abnormality of the pelvis.
--- NOTE | 2021-10-28 22:28 | XR ---
EXAMINATION TYPE: XR chest 1V DATE OF EXAM: 10/28/2021 COMPARISON: 04/24/2019 HISTORY: Pain. Fall. TECHNIQUE: FINDINGS: Heart is normal. Lungs are clear of consolidation. There are no hilar masses. Costophrenic angles are clear. No pneumothorax. Bony thorax appears intact. IMPRESSION: No active cardiopulmonary disease. Normal heart. No change.
--- NOTE | 2021-10-28 22:33 | CT ---
EXAMINATION TYPE: CT brain rene gallardo con DATE OF EXAM: 10/28/2021 COMPARISON: CT brain 04/24/2019 HISTORY: fall CT DLP: 1316.1 mGycm Automated exposure control for dose reduction was used. Images of the brain and cervical spine obtained with no contrast. There is diffuse cerebral cortical atrophy. There is no mass effect nor midline shift. No sign of int racranial hemorrhage. There is patchy hypodensity in the periventricular white matter. The calvarium is intact. The skull base is intact. There is previous surgery at the right side greater wing of the sphenoid bone. There is right temporal craniotomy defect. The cervical vertebra have normal alignment. There is degenerative disc space narrowing at C4-5 and C 5-6 and C6-7 with spur formation. No compression fracture. There is multilevel cervical hypertrophic facet arthropathy. IMPRESSION: Moderate cerebral atrophy and chronic small vessel ischemia. No acute intracranial abnormality. No si gnificant change. Cervical spondylotic changes in the lower cervical spine. No fracture seen.
[2021-10-28] MEDS ORDERED: MAGNESIUM OXIDE 400 MG TAB PO STA ×2 (23:35)
[2021-10-28] MEDS ORDERED: ONDANSETRON 4 MG/2 ML VIAL IVP PRN (23:56)
[2021-10-28] MEDS ORDERED: NALOXONE 0.4 MG/ML 1 ML VIAL IV PRN (23:56)
[2021-10-28] MEDS ORDERED: MORPHINE SULFATE 4 MG/ML SYRINGE IV PRN (23:56)
--- NOTE | 2021-10-29 02:05 | P.HPIM ---
History of Present Illness H&P Date: 10/29/21 Patient is an 86-year-old female with a PMH of hypertension, hyperlipidemia, and dementia who was brought into the emergency room after she was found on the ground. The patient was last seen on the evening of 10/27 at 8 PM and was subsequently found on 10/28 on the floor of her house. The patient does not recall the events leading up to the fall. When asked why she is at the hospital, she reports due to her right foot pain. Reports that her right foot has been hurting for several days and that she is unable to bear weight. Denied pain elsewhere. Denied experiencing chest pain, shortness of breath, loss of consciousness, fever, chills, cough, nausea, vomiting, abdominal pain, or urinary complaints. Reports that she lives by herself and is able to perform most of her ADLs independently. Head and cervical spine CT was unremarkable with right ankle x-ray showing an acute fracture of the lateral malleolus. Pelvis x-ray was unremarkable with chest x-ray also unremarkable. EKG reveals sinus rhythm at 66 bpm with Q waves in leads 3. Laboratory evaluation was remarkable for leukocytosis of 14.6, BUN 29, bilirubin 2.4, magnesium 1.5, and creatinine kinase 271. Review of systems: Pertinent positives and negatives as discussed in HPI, a complete review of systems was performed and all other systems are negative. Physical examination: General: non toxic, no distress, appears at stated age, normal weight Derm: no unusual rashes/lesions, warm Head: atraumatic, normocephalic, symmetric Eyes: EOMI, no lid lag, anicteric sclera, pupils equal round reactive to light ENT: Nose and ears atraumatic Neck: No cervical lymphadenopathy, trachea midline, supple Mouth: no lip lesion, mucus membranes moist Cardiovascular: S1S2 reg, no murmur, positive dorsalis pedis pulse bilateral, no edema Lungs: CTA bilateral, no rhonchi, no rales, no accessory muscle use Abdominal: soft, nontender to palpation, no guarding Ext: muscle strength 5 out of 5 in all 4 extremities grossly, no gross muscle atrophy, no contractures, right ankle Casimiro bandage in place Neuro: CN II-XI grossly intact, no gross focal neuro deficits Psych: Alert, oriented to person and place, not oriented to time Assessment/plan Right ankle fracture -PT and orthopedic surgery consult -Strict bedrest and fall precautions -Pain control Hypomagnesemia -Replace and monitor Mild rhabdomyolysis -Gentle IV hydration Leukocytosis -Likely due to acute distress -No signs of active infection at this time DVT prophylaxis -Heparin subcu The patient is admitted with an anticipated less than 2 midnight stay for evaluation of right ankle fracture CODE STATUS: Full Code Discussed with: Patient Anticipated discharge date: in am Anticipated discharge place: Home Past Medical History Past Medical History: Coronary Artery Disease (CAD), Cancer, COPD, GERD/Reflux, Hypertension Additional Past Medical History / Comment(s): STATES TOLD "ENLARGED HEART", SKIN CANCER, BACK PAIN., ?SPOT REMOVED FROM BRAIN. History of Any Multi-Drug Resistant Organisms: None Reported Past Surgical History: Heart Catheterization Additional Past Surgical History / Comment(s): BRAIN SURGERY, SKIN CANCER, TUBAL , HEART CATH (08/2016 @ [facility]) Past Anesthesia/Blood Transfusion Reactions: No Reported Reaction Past Psychological History: Anxiety, Depression Past Alcohol Use History: None Reported Past Drug Use History: None Reported - Past Family History Mother Family Medical History: Cancer Additional Family Medical History / Comment(s): BREAST CANCER Medications and Allergies Home Medications Medication Instructions Recorded Confirmed Type atenoloL [Tenormin] 50 mg PO DAILY 08/26/17 10/28/21 History Simvastatin 80 mg PO DAILY 03/18/18 10/28/21 History Donepezil [Aricept] 5 mg PO DAILY 10/28/21 10/28/21 History Losartan Potassium [Cozaar] 25 mg PO DAILY 10/28/21 10/28/21 History Allergies Allergy/AdvReac Type Severity Reaction Status Date / Time codeine Allergy Unknown Verified 10/28/21 22:12 Physical Exam Vitals: Vital Signs Temp Pulse Resp BP Pulse Ox 10/29/21 01:40 93 L 10/29/21 00:24 70 18 92 L 10/28/21 20:24 98.3 F 75 18 139/66 96 Intake and Output 10/28/21 10/28/21 10/29/21 14:59 22:59 06:59 Other: Weight 61.235 kg Results CBC & Chem 7: 10/28/21 21:37 10/28/21 21:37 Labs: Abnormal Lab Results - Last 24 Hours (Table) 10/28/21 10/28/21 10/28/21 Range/Units 21:37 21:37 21:37 WBC 14.6 H (3.8-10.6) k/uL Neutrophils # 12.5 H (1.3-7.7) k/uL Lymphocytes # 0.9 L (1.0-4.8) k/uL Carbon Dioxide 21 L (22-30) mmol/L BUN 29 H (7-17) mg/dL Glucose 146 H (74-99) mg/dL Magnesium 1.5 L (1.6-2.3) mg/dL Total Bilirubin 2.4 H (0.2-1.3) mg/dL Creatine Kinase 271 H (30-135) U/L
[2021-10-29 03:24] LABS: Amorphous Sediment,Urine Occasional /hpf; Appearance,Urine Cloudy (Clear); Bacteria,Urine Rare /hpf; Bilirubin,Urine Negative (Negative); Blood,Urine Trace (Negative); Color,Urine Yellow; Glucose,Urine (UA) Negative (Negative); Hyaline Casts,Urine 4 /lpf (0-2); Ketones,Urine Trace (Negative); Leukocyte Esterase,Urine Negative (Negative); Mucus,Urine Rare /hpf; Nitrite,Urine Negative (Negative); PH, Urine 5.5 (5.0-8.0); Protein,Urine Trace (Negative); RBC,Urine <1 /hpf (0-5); Specific Gravity,Urine 1.021 (1.001-1.035); Squamous Epithelial Cell,Urine <1 /hpf (0-4); Urobilinogen,Urine <2.0 mg/dL (<2.0); WBC,Urine 3 /hpf (0-5)
[2021-10-29 05:12] LABS: Basophils % (A) 0 %; Eosinophils % (A) 0 %; HCT 35.5 % (34.0-46.0); HGB 11.5 gm/dL (11.4-16.0); Lymphocytes # (A) 1.4 k/uL (1.0-4.8); Lymphocytes % (A) 14 %; MCH 28.9 pg (25.0-35.0); MCHC 32.4 g/dL (31.0-37.0); MCV 89.3 fL (80.0-100.0); Mean Platelet Volume 7.9; Monocytes # (A) 0.9 k/uL (0-1.0); Monocytes % (A) 9 %; Neutrophils # (A) 7.5 k/uL (1.3-7.7); Neutrophils % (A) 75 %; Platelet Count 259 k/uL (150-450); RBC 3.98 m/uL (3.80-5.40); RDW 13.4 % (11.5-15.5)
[2021-10-29 05:31] LABS: Calcium 8.1 mg/dL (8.4-10.2); Magnesium 1.5 mg/dL (1.6-2.3); Phosphorus 2.6 mg/dL (2.5-4.5); Potassium 3.8 mmol/L (3.5-5.1); Total Protein 5.6 g/dL (6.3-8.2)
[2021-10-29] MEDS: SODIUM CHLORIDE 0.9% 1,000 ML IV SCH ×3 (07:15→16:57)
[2021-10-29] MEDS: HEPARIN SODIUM,PORCINE/PF 5,000 UNIT/0.5 ML SYRINGE SQ SCH ×3 (09:00→23:37)
--- NOTE | 2021-10-29 10:25 | P.CNOR ---
History of Present Illness - [facility] Consult date: 10/29/21 History of present illness: This patient is an 86-year-old female with past medical history of hypertension, hyperlipidemia, dementia that presented to [facility] emergency department on 10/28/21 after a fall at home. The patient lives at home alone, and was found down on 10/28/21. Patient presented to the emergency department via EMS with a family member. X-rays of the right ankle in the ED revealed a right distal fibula fracture. She was placed into a short leg splint. Patient was admitted under the care of internal medicine with a consult placed to orthopedic surgery for evaluation of her right ankle fracture. Patient is examined bedside this morning. She is complaining of isolated right ankle pain. She is mildly confused and states she lives at home with her . She states she is in the hospital for her right ankle pain. She states she does not use a walker at baseline. Patient does not think she hit her head when she fell. She has no additional complaints or concerns at the time of my exam. Vital signs stable. Past Medical History Past Medical History: Coronary Artery Disease (CAD), Cancer, COPD, GERD/Reflux, Hypertension Additional Past Medical History / Comment(s): STATES TOLD "ENLARGED HEART", SKIN CANCER, BACK PAIN., SPOT REMOVED FROM BRAIN. History of Any Multi-Drug Resistant Organisms: None Reported Past Surgical History: Heart Catheterization Additional Past Surgical History / Comment(s): BRAIN SURGERY, SKIN CANCER, TUBAL , HEART CATH (08/2016 @ [facility]) Past Anesthesia/Blood Transfusion Reactions: No Reported Reaction Past Psychological History: Anxiety, Depression Smoking Status: Former smoker Past Alcohol Use History: None Reported Additional Past Alcohol Use History / Comment(s): QUIT SMOKING 50 YEARS AGO, STATES SHE SMOKED 20 YEARS -1PPD Past Drug Use History: None Reported - Past Family History Mother Family Medical History: Cancer Additional Family Medical History / Comment(s): BREAST CANCER Medications and Allergies Home Medications Medication Instructions Recorded Confirmed Type atenoloL [Tenormin] 50 mg PO DAILY 08/26/17 10/28/21 History Simvastatin 80 mg PO DAILY 03/18/18 10/28/21 History Donepezil [Aricept] 5 mg PO DAILY 10/28/21 10/28/21 History Losartan Potassium [Cozaar] 25 mg PO DAILY 10/28/21 10/28/21 History Allergies Allergy/AdvReac Type Severity Reaction Status Date / Time codeine Allergy Unknown Verified 10/28/21 22:12 Physical Examination On examination, the patient is sitting up in bed in no apparent distress. She is alert and answers questions appropriately, although she is mildly confused. Her head appears normocephalic and atraumatic. Her breathing appears nonlabored. On inspection of her bilateral upper extremities, there are no obvious deformities or signs of trauma. On inspection of the left lower extremity, there are no based deformities or signs of trauma. No pain with PROM of the left hip. On inspection of the right lower extremity, there is a short leg splint in place of the right ankle. The splint is taken down and reveals diffuse swelling and ecchymosis of the right ankle. There are no open wounds or lacerations. There is significant pain to palpation of the distal fibula. No pain with palpation of the medial malleolus. No pain with palpation of the knee, lower leg, foot. No pain with passive range of motion of the right hip or right knee. Motor and sensory function is intact of the right lower extremity. Right dorsalis pedis pulse easily palpable, right lower extremity warm well perfused. Calf is nontender. Results Right ankle x-ray 10/28/21: Non-displaced fracture of the right distal fibula. No additional fractures identified. Right foot x-ray 10/28/21: No fractures identified. Pelvis x-ray 10/28/21: No fractures identified. - Labs Labs: Abnormal Lab Results - Last 24 Hours (Table) 10/28/21 10/28/21 10/28/21 Range/Units 21:37 21:37 21:37 WBC 14.6 H (3.8-10.6) k/uL Neutrophils # 12.5 H (1.3-7.7) k/uL Lymphocytes # 0.9 L (1.0-4.8) k/uL Chloride (98-107) mmol/L Carbon Dioxide 21 L (22-30) mmol/L BUN 29 H (7-17) mg/dL Glucose 146 H (74-99) mg/dL Calcium (8.4-10.2) mg/dL Magnesium 1.5 L (1.6-2.3) mg/dL Total Bilirubin 2.4 H (0.2-1.3) mg/dL Creatine Kinase 271 H (30-135) U/L Total Protein (6.3-8.2) g/dL Albumin (3.5-5.0) g/dL Urine Appearance (Clear) Urine Protein (Negative) Urine Ketones (Negative) Urine Blood (Negative) Amorphous Sediment (None) /hpf Urine Bacteria (None) /hpf Hyaline Casts (0-2) /lpf Urine Mucus (None) /hpf 10/29/21 10/29/21 Range/Units 02:30 04:51 WBC (3.8-10.6) k/uL Neutrophils # (1.3-7.7) k/uL Lymphocytes # (1.0-4.8) k/uL Chloride 110 H (98-107) mmol/L Carbon Dioxide (22-30) mmol/L BUN 27 H (7-17) mg/dL Glucose 108 H (74-99) mg/dL Calcium 8.1 L (8.4-10.2) mg/dL Magnesium 1.5 L (1.6-2.3) mg/dL Total Bilirubin 2.0 H (0.2-1.3) mg/dL Creatine Kinase (30-135) U/L Total Protein 5.6 L (6.3-8.2) g/dL Albumin 3.0 L (3.5-5.0) g/dL Urine Appearance Cloudy H (Clear) Urine Protein Trace H (Negative) Urine Ketones Trace H (Negative) Urine Blood Trace H (Negative) Amorphous Sediment Occasional H (None) /hpf Urine Bacteria Rare H (None) /hpf Hyaline Casts 4 H (0-2) /lpf Urine Mucus Rare H (None) /hpf H & H 10/28/21 10/29/21 Range/Units 21:37 04:51 Hgb 12.6 11.5 (11.4-16.0) gm/dL Hct 38.3 35.5 (34.0-46.0) % Coagulation 10/28/21 Range/Units 21:37 INR 1.0 (<1.2) Result Diagrams: 10/29/21 04:51 10/29/21 04:51 Assessment and Plan Assessment: Right distal fibula fracture Plan: - The clinical and imaging findings were discussed with the patient. The patient was discussed with Dr. Braaksma. No surgical intervention is recommended for the patient's right ankle fracture. Recommend immobilization of the right ankle in a tall CAM boot. She may weight bear as tolerated on the right ankle while wearing the boot. Recommend she use a walker for ambulation. Fall precautions. - Recommend evaluation by physical therapy after she obtains the boot for gait and balance training. - Up with assistance only. - Recommend ice and elevation of right ankle for swelling control. Pain management as needed. - Anticipate discharge to subacute rehab. Follow-up in the office one week after discharge for repeat x-rays of the right ankle.
[2021-10-29] MEDS: ACETAMINOPHEN TAB 325 MG TAB PO PRN (17:54)
[2021-10-29 20:19] VITALS: RESP 18
[2021-10-30] MEDS: SODIUM CHLORIDE 0.9% 1,000 ML IV SCH ×3 (07:03→16:07)
[2021-10-30] MEDS: HEPARIN SODIUM,PORCINE/PF 5,000 UNIT/0.5 ML SYRINGE SQ SCH (08:09)
[2021-10-30] MEDS: ACETAMINOPHEN TAB 325 MG TAB PO PRN (08:18)
[2021-10-30 08:37] LABS: Appearance,Urine Clear (Clear); Bilirubin,Urine Negative (Negative); Blood,Urine Negative (Negative); Color,Urine Yellow; Glucose,Urine (UA) Negative (Negative); Ketones,Urine 1+ (Negative); Leukocyte Esterase,Urine Negative (Negative); Nitrite,Urine Negative (Negative); PH, Urine 5.5 (5.0-8.0); Protein,Urine Trace (Negative); Specific Gravity,Urine 1.025 (1.001-1.035); Urobilinogen,Urine <2.0 mg/dL (<2.0)
[2021-10-30] MEDS ORDERED: traMADol 50 MG TAB PO PRN (08:55)
[2021-10-30] MEDS ORDERED: LOSARTAN 25 MG TAB PO SCH (09:00)
[2021-10-30] MEDS ORDERED: DONEPEZIL 5 MG TAB PO SCH (09:00)
[2021-10-30 13:18] LABS: Glucose,Whole Blood 97 mg/dL (70-110)
[2021-10-30 13:52] VITALS: BP 152/61; PULSE 66; TEMP 97.9
[2021-10-30] MEDS ORDERED: ALPRAZolam 0.25 MG TAB PO STA (13:55)
--- NOTE | 2021-10-30 14:39 | P.DS ---
Providers Date of admission: 10/28/21 23:56 Attending physician: Kasey Lara MD Consults: 10/28/21 23:56 Consult Physician Routine Consulting Provider: Danie Watson Consult Reason/Comments: lateral mal fx Do you want consulting provider notified?: Yes Primary care physician: Son [facility] Course: Patient is an 86-year-old female with a PMH of hypertension, hyperlipidemia, and dementia who was brought into the emergency room after she was found on the ground. The patient was last seen on the evening of 10/27 at 8 PM and was subsequently found on 10/28 on the floor of her house. The patient does not recall the events leading up to the fall. When asked why she is at the hospital, she reports due to her right foot pain. Head and cervical spine CT was unremarkable with right ankle x-ray showing an acute fracture of the lateral malleolus. Pelvis x-ray was unremarkable with chest x-ray also unremarkable. Patient was seen by orthopedic surgery team. No surgical intervention was recommended at this time for the patient's right ankle fracture. Recommendation was immobilization of the right ankle in a tall cam boot patient was discharged to rehab facility for ongoing rehabilitation. Patient Condition at Discharge: Stable Plan - Discharge Summary Discharge Rx Participant: Yes New Discharge Prescriptions: New traMADol HCl [Ultram] 50 mg PO Q6H PRN 7 Days #3 tab PRN Reason: Pain Continue atenoloL [Tenormin] 50 mg PO DAILY Simvastatin 80 mg PO DAILY Losartan Potassium [Cozaar] 25 mg PO DAILY Donepezil [Aricept] 5 mg PO DAILY Discharge Medication List atenoloL [Tenormin] 50 mg PO DAILY 08/26/17 [History] Simvastatin 80 mg PO DAILY 03/18/18 [History] Donepezil [Aricept] 5 mg PO DAILY 10/28/21 [History] Losartan Potassium [Cozaar] 25 mg PO DAILY 10/28/21 [History] traMADol HCl [Ultram] 50 mg PO Q6H PRN 7 Days #3 tab 10/30/21 [Rx] Follow up Appointment(s)/Referral(s): Son Silvestre DO [Primary Care Provider] - 1-2 days [facility] [NON-STAFF] - As Needed (CAM boot) Marwood Marshall, [NON-STAFF] - As Needed Discharge Disposition: TRANSFER TO SNF/ECF
== END 2021-10-30 17:50 ==
LOC: EC 20:20 → 4SSUR 23:56
PROVIDERS: ADMIT Internal Medicine; ATTEND Internal Medicine
DX: S82.61XA Displaced fracture of lateral malleolus of right fibula, initial encounter for closed fracture (principal); W18.30XA Fall on same level, unspecified, initial encounter; F03.90 Unspecified dementia, unspecified severity, without behavioral disturbance, psychotic disturbance, mood disturbance, and anxiety; I25.10 Atherosclerotic heart disease of native coronary artery without angina pectoris; J44.9 Chronic obstructive pulmonary disease, unspecified; K21.9 Gastro-esophageal reflux disease without esophagitis; I10 Essential (primary) hypertension; F02.80 Dementia in other diseases classified elsewhere, unspecified severity, without behavioral disturbance, psychotic disturbance, mood disturbance, and anxiety; E78.5 Hyperlipidemia, unspecified; D72.829 Elevated white blood cell count, unspecified; Z85.828 Personal history of other malignant neoplasm of skin; Z87.891 Personal history of nicotine dependence; Z98.890 Other specified postprocedural states; F41.9 Anxiety disorder, unspecified; F32.A Depression, unspecified; Z80.3 Family history of malignant neoplasm of breast; Z79.899 Other long term (current) drug therapy; Z88.5 Allergy status to narcotic agent
CPT/HCPCS: 96372 ×2; 96374; 96361 ×2; 99285; 36415; 94760; 93005; 97530; 97162; 97166; 80053 ×2; 82550; 83735 ×2; 84100 ×2; 85025 ×2; 85610; 85730; 81003; 81001; 87635; 72170; 73610; 73630; 71045; 72125; 70450; G0378 ×3; J2405; J1644 ×2